=== PATIENT | female | born 1955 | race Caucasian/White ===

== ENCOUNTER 2023-07-30 09:47 | Observation (INO) ==
[2023-07-30] MEDS: NITROGLYCERIN 2% OINTMENT 30GM TUBE EXT STA (10:41)
[2023-07-30] MEDS: ONDANSETRON INJ 2 MG/ML 2 ML VIAL IV STA (10:41)
[2023-07-30] MEDS: FAMOTIDINE 20MG IV PUSH 20 MG/5 ML SYR IV STA (10:45)
[2023-07-30 10:50] LABS: Basophils # (auto) 0.02 K/uL (0.00-0.20); Basophils % (auto) 0.2 %; Eosinophils # (auto) 0.08 K/uL (0.00-0.50); Eosinophils % (auto) 0.7 %; Hematocrit (blood only) 33.3 % (37.0-47.0); Hemoglobin 11.5 g/dl (12.0-16.0); Immature Granulocytes # (auto) 0.03 K/uL (0.01-0.20); Immature Granulocytes % (auto) 0.3 %; Lymphocytes # (auto) 1.06 K/uL (1.20-3.40); Lymphocytes % (auto) 9.7 %; Mean Corpuscular Hemoglobin 32.5 pg (25.0-34.0); Mean Corpuscular Hgb Conc 34.5 g/dL (32.0-36.0); Mean Corpuscular Volume 94.1 fL (80.0-100.0); Mean Platelet Volume 10.8 fL (9.4-12.4); Monocytes # (auto) 1.16 K/uL (0.11-0.59); Monocytes % (auto) 10.6 %; Neutrophils % (auto) 78.5 %; Platelet Count 188 K/uL (130-400); RDW Standard Deviation 41.9 fL (36.4-46.3); Red Blood Count 3.54 M/uL (4.20-5.40); White Blood Count 10.95 K/ul (4.8-10.8)
--- NOTE | 2023-07-30 10:50 | Emergency Department Note ---
Impression & Plan Precordial chest pain, Epigastric abdominal pain, History of coronary artery disease, Hypokalemia, Hypomagnesemia ED Provider Note NAME: ISIDRO TONEY AGE: 68 SEX: F : 1955 ARRIVES VIA: Walk-In INFORMANT: [Patient][daughter] ED PROVIDER(S): [Roderick Sparrow MD] CHIEF COMPLAINT: Chest pain HISTORY OF PRESENT ILLNESS: The patient is a 68-year-old female who presents with around 15 hours of central chest pain that radiates to her neck. She has felt slightly nauseated, there was no shortness of breath, no sweating. The patient states that she thought maybe she had reflux so she took some Tums but it has not helped. The patient does have a history of a 50% LAD lesion, she has never had a heart attack. She does see Dr. Chavez of cardiology. The patient denies any cough or congestion. No respiratory complaints. She states that she has felt similar before when she was in [place], at that time, it turned out not to be her heart. Of note, the patient does feel the pain is slightly worse with a very deep breath. PMHx/PSHx/Social Hx: See Below PHYSICAL EXAM: GENERAL: Patient is in no acute distress. HEENT: No acute trauma, normocephalic atraumatic, mucous membranes moist, no nasal congestion. NECK: No stridor, no adenopathy, no meningismus, trachea is midline. LUNGS: Clear to auscultation bilaterally, no wheeze, no rhonchi, breath sounds equal. HEART: 2/6 systolic murmur heard best at the right sternal border, normal rate, normal rhythm. Chest: Mildly tender over the mid sternal area. ABDOMEN: Soft, tender in the epigastrium and slightly in the right upper quadrant, no peritonitis. EXTREMITIES: No cyanosis, full range of motion of all the joints without pain or difficulty. NEUROLOGIC: Oriented x 3, no acute motor or sensory deficits, no focal weakness. SKIN: No jaundice, no diaphoresis. DIFFERENTIAL DIAGNOSIS: Cardiac ischemia, [place], reflux, pancreatitis, biliary colic, esophagitis, among others. EMERGENCY DEPARTMENT PROCEDURES: MEDICAL DECISION MAKING: There is a very mild leukocytosis, this could be consistent with infection or just the stress of her current situation. A mild anemia was noted. There was a normal platelet count. No coagulopathy. Potassium and sodium were both slightly low, magnesium was slightly low. No worrisome liver enzyme elevation, no renal failure. No evidence for pancreatitis. ECG shows a normal sinus rhythm, no acute ischemic change. Cardiac enzyme testing x 1 was not consistent with acute cardiac injury. Chest x-ray did not show mediastinal widening, pneumonia or pneumothorax. Gallbladder ultrasound was unrevealing. On exam, the patient was somewhat uncomfortable with palpation of the anterior sternal chest wall and the epigastrium. The patient was given nitroglycerin paste, this did not help her pain. She received IV Zofran, IV morphine, IV Pepcid. She was given IV Tylenol, IV potassium and IV magnesium. The patient does feel better status post the morphine administration. At this point, the cause for her complaints is unclear. Cardiac ischemia is a consideration given her known coronary artery disease. Gastritis or ulcer is a possibility. Given the circumstances, I do think further monitoring/workup would be warranted. I spoke with the patient and case management, the on-call hospitalist was consulted. Prior/Outside records/notes reviewed: None ECG per my interpretation: Indication was chest pain. The ECG shows a normal sinus rhythm with an incomplete right bundle branch block. There is some nonspecific ST change. The rate is 81. There is no acute ST elevation, no PVCs. The QTc is 462. Continuous Cardiac Monitoring per my interpretation: An order was placed for continuous cardiac monitoring. The monitor shows a rate of 75 with normal sinus rhythm. Imaging/x-ray results per my interpretation: Chest x-ray does not show mediastinal widening, pneumonia or pneumothorax. Chronic Medical/Social conditions affecting care: History of coronary artery disease Care/Management discussed with: Case management, the on-call hospitalist. Level of care consideration(s): After review of the information above and other included data: --I believe the patient requires escalation of care to admission DISPOSITION: Admission Past Med/Surg History Problem List (Updated 07/30/23 @ 15:44 by Roderick Sparrow MD) Hypomagnesemia (Acute) Hypokalemia (Acute) History of coronary artery disease (Acute) Epigastric abdominal pain (Acute) Precordial chest pain (Acute) Hypokalemia Hypomagnesemia Chest pain Dyslipidemia Essential hypertension CAD (coronary artery disease) Medical History Depression with anxiety Prediabetes Surgical History History of cardiac catheterization Family History Father Heart disease [place] in early 50s, at 55 Mother Heart disease [place] in 60s, at age 78 Brother Gallbladder disease Grandmother Gallbladder disease Social History Smoking Status: Never smoker Hx Alcohol Use: Yes Alcohol Intake Frequency: 4 or More x per/Week Alcohol Intake Frequency Comment: 1 drink/day on average Hx Substance Use: No current occupational status: retired Allergies Allergies Allergy/AdvReac Type Severity Reaction Status Date / Time No Known Allergies Allergy Unverified 07/30/23 12:54 Home Meds Home Medications Medication Instructions Recorded Confirmed ascorbic acid (vitamin C) 500 mg 500 mg PO DAILY 07/30/23 07/30/23 tablet (Vitamin C) aspirin 81 mg chewable tablet 81 mg PO DAILY 07/30/23 07/30/23 atorvastatin 40 mg tablet 40 mg PO QAM 07/30/23 07/30/23 cholecalciferol (vitamin D3) 25 25 mcg PO DAILY 07/30/23 07/30/23 mcg (1,000 unit) capsule citalopram 10 mg tablet 5 mg PO DAILY 07/30/23 07/30/23 labetalol 200 mg tablet 200 mg PO BID 07/30/23 07/30/23 losartan 100 1 tab PO QPM 07/30/23 07/30/23 mg-hydrochlorothiazide 25 mg tablet potassium chloride 10 mEq 10 meq PO DAILY 07/30/23 07/30/23 tablet,extended release(part/cryst) Results & Data (ED) Vital Signs Vital Signs - 24 hr 07/30/23 09:56 07/30/23 10:25 07/30/23 10:25 Temperature 37.3 C Temperature Source Oral Pulse Rate 78 Pulse Rate [Apical] 76 Respiratory Rate 20 21 Respiratory Effort / Characteristics Non-Labored Spontaneous Non-Labored Spontaneous Respiratory Depth Normal Normal Respiratory Pattern Regular Blood Pressure 129/67 Blood Pressure [Right Arm] 160/90 H Blood Pressure Mean 87 Blood Pressure Mean [Right Arm] 113 Blood Pressure Position [Right Arm] Semi-fowlers Pulse Oximetry 97 96 Oxygen Delivery Method Room Air Room Air Room Air Oxygen Flow Rate 96 Sepsis Recent Fever Within 48 Hours No Sepsis New/Unexplained Change in Mental Status N/A Sepsis Action Taken by Nursing No Action Required 07/30/23 10:26 07/30/23 11:20 07/30/23 11:53 Temperature Temperature Source Pulse Rate 75 72 Pulse Rate [Apical] 74 Respiratory Rate 18 13 Respiratory Effort / Characteristics Non-Labored Spontaneous Respiratory Depth Normal Respiratory Pattern Blood Pressure Blood Pressure [Right Arm] 154/86 H Blood Pressure Mean Blood Pressure Mean [Right Arm] 108 Blood Pressure Position [Right Arm] Pulse Oximetry 95 93 Oxygen Delivery Method Room Air Room Air Oxygen Flow Rate Sepsis Recent Fever Within 48 Hours Sepsis New/Unexplained Change in Mental Status Sepsis Action Taken by Nursing 07/30/23 12:56 07/30/23 14:00 07/30/23 14:53 Temperature Temperature Source Pulse Rate Pulse Rate [Apical] 72 68 67 Respiratory Rate 16 19 16 Respiratory Effort / Characteristics Non-Labored Spontaneous Non-Labored Spontaneous Non-Labored Spontaneous Respiratory Depth Normal Normal Normal Respiratory Pattern Regular Regular Regular Blood Pressure Blood Pressure [Right Arm] 101/57 L 103/66 111/65 Blood Pressure Mean Blood Pressure Mean [Right Arm] 71 78 80 Blood Pressure Position [Right Arm] Pulse Oximetry 93 97 93 Oxygen Delivery Method Room Air Room Air Room Air Oxygen Flow Rate Sepsis Recent Fever Within 48 Hours Sepsis New/Unexplained Change in Mental Status Sepsis Action Taken by [facility] Medications Current Medication List: was personally reviewed by me Laboratory Data Attestation: I reviewed the patient's lab results. 07/30/23 10:18 07/30/23 10:18 Lab Results 07/30/23 07/30/23 Range/Units 10:18 14:22 WBC 10.95 H (4.8-10.8) K/ul RBC 3.54 L (4.20-5.40) M/uL Hgb 11.5 L (12.0-16.0) g/dl Hct 33.3 L (37.0-47.0) % MCV 94.1 (80.0-100.0) fL MCH 32.5 (25.0-34.0) pg MCHC 34.5 (32.0-36.0) g/dL RDW Std Deviation 41.9 (36.4-46.3) fL RDW Coeff of Rajesh 12.0 (11.5-14.5) % Plt Count 188 (130-400) K/uL MPV 10.8 (9.4-12.4) fL Immature Gran % (Auto) 0.3 % Neut % (Auto) 78.5 % Lymph % (Auto) 9.7 % [facility] [place] % (Auto) 10.6 % Eos % (Auto) 0.7 % Baso % (Auto) 0.2 % Neut # (Auto) 8.60 H (1.40-6.50) K/uL Lymph # (Auto) 1.06 L (1.20-3.40) K/uL [facility] [facility] # (Auto) 1.16 H (0.11-0.59) K/uL Eos # (Auto) 0.08 (0.00-0.50) K/uL Baso # (Auto) 0.02 (0.00-0.20) K/uL Immature Gran # (Auto) 0.03 (0.01-0.20) K/uL PT 11.0 (9.0-12.0) Seconds INR 1.0 (0.9-1.1) APTT 25 (21-31) Seconds PTT Ratio 0.9 D-Dimer 630 H* (0-500) ug/L FEU Sodium 135 L (136-145) mmol/L Potassium 3.3 L (3.5-5.1) mmol/L Chloride 98 (98-107) mmol/L Carbon Dioxide 29 (21-32) mmol/L Anion Gap 8 (3-11) BUN 11 (6-23) mg/dl Creatinine 0.70 (0.6-1.2) mg/dl Est Cr Clr Drug Dosing 71.2 ml/min Est GFR ( Amer) 102.5 ml/min Est GFR (Non-Af Amer) 88.4 ml/min BUN/Creatinine Ratio 15.7 (10-20) Glucose 130 H (70-99(Fasting)) mg/dl Calcium 9.8 (8.6-10.3) mg/dl Magnesium 1.5 L (1.7-2.4) mg/dl Total Bilirubin 1.6 H (0.2-1.0) mg/dl AST 19 (13-39) U/L ALT 19 (7-52) U/L Alkaline Phosphatase 46 (34-104) U/L Troponin I High Sens 4.3 4.0 (0-14) pg/ml Total Protein 6.7 (6.0-8.3) gm/dl Albumin 4.5 (3.4-5.0) gm/dl Globulin 2.2 L (2.5-4.0) gm/dl Albumin/Globulin Ratio 2.0 (0.9-2) Lipase 14 (11-82) U/L Administered Medications Magnesium Sulfate/Dextrose (Magnesium Sulfate / D5w) 1 gm in 100 mls @ 50 mls/hr IV ONE ONE Stop: 07/30/23 15:54 Last Admin: 07/30/23 14:11 Dose: 50 mls/hr Documented By: KARRIE Discontinued Medications Al Hydrox/Mg Hydrox/Simethicone (Aluminum/Magnesium Susp 30 Ml Udc) 30 ml PO NOW STA Stop: 07/30/23 13:42 Last Admin: 07/30/23 14:13 Dose: 30 ml Documented By: KARRIE Famotidine (Pepcid 20mg Iv Push) 20 mg in 5 mls @ 2.5 mls/min IV NOW STA Stop: 07/30/23 10:30 Last Admin: 07/30/23 10:45 Dose: 2.5 mls/min Documented By: KARRIE Magnesium Sulfate/Dextrose (Magnesium Sulfate / D5w) 1 gm in 100 mls @ 100 mls/hr IV NOW STA Stop: 07/30/23 12:13 Last Infusion: 07/30/23 13:01 Dose: Infused Documented By: Admin: 07/30/23 11:47 Dose: 100 mls/hr Documented By: KARRIE Potassium Chloride (K Michael / Wtr) 10 meq in 100 mls @ 100 mls/hr IV ONE ONE Stop: 07/30/23 12:13 Last Infusion: 07/30/23 13:02 Dose: Infused Documented By: Admin: 07/30/23 11:50 Dose: 100 mls/hr Documented By: KARRIE Acetaminophen (Ofirmev) 1,000 mg in 100 mls @ 400 mls/hr IV NOW STA Stop: 07/30/23 11:29 Last Infusion: 07/30/23 13:01 Dose: Infused Documented By: Admin: 07/30/23 11:25 Dose: 400 mls/hr Documented By: GHANSHYAM Morphine Sulfate (Morphine Sulfate 4 Mg/Ml 1 Ml Carp\Vial) 4 mg IV NOW STA Stop: 07/30/23 11:16 Last Admin: 07/30/23 11:22 Dose: 4 mg Documented By: GHANSHYAM Nitroglycerin (Nitroglycerin 2% Ointment 30gm Tube) 1 inch EXT NOW STA Stop: 07/30/23 10:30 Last Admin: 07/30/23 10:41 Dose: 1 inch Documented By: KARRIE Ondansetron HCl (Ondansetron Inj 2 Mg/Ml 2 Ml Vial) 4 mg IV NOW STA Stop: 07/30/23 10:30 Last Admin: 07/30/23 10:41 Dose: 4 mg Documented By: KARRIE Potassium Chloride (Potassium Chloride Crtab 20 Meq Tabcr) 40 meq PO NOW STA Stop: 07/30/23 13:56 Last Admin: 07/30/23 14:13 Dose: 40 meq Documented By: KARRIE Imaging Data Radiologist's Impression: Chest X-Ray 07/30/23 10:18 XR chest 1V portable CLINICAL HISTORY: Chest pain, nonspecific COMPARISON STUDY: No previous studies for comparison. FINDINGS: Lung volumes are normal. There is no consolidation. Minimal bibasilar densities favor atelectasis. There is no pneumothorax or pleural effusion. Cardiac size is at the upper limits of normal. Mediastinal contours are normal. There is no evidence for pulmonary edema. IMPRESSION: No acute cardiopulmonary findings. ACT 112: Negative or not required by law. Electronically signed by: Dayron Keller M.D. 07/30/2023 10:50 AM Gallbladder Ultrasound 07/30/23 11:21 US gallbladder CLINICAL HISTORY: Epigastric pain. COMPARISON STUDY: No previous studies for comparison. FINDINGS: Hepatic echogenicity is mildly increased. There are no hepatic lesions. There is no biliary ductal dilatation. Gallbladder is normal. There are no gallstones. There is no gallbladder wall thickening. The pancreatic body is normal. Head and tail are obscured by overlying bowel gas. There is no right hydronephrosis. An 8 mm right renal cyst is incidentally noted. IMPRESSION: 1. No gallstones or biliary ductal ductal dilatation. 2. Possible mild hepatic steatosis. ACT 112: Negative or not required by law. Electronically signed by: Dayron Keller M.D. 07/30/2023 12:22 PM Discharge Plan Visit Data Chief Complaint: Chest Pain Stated Complaint: CHEST PAINS ED Provider: Roderick Sparrow Discharge Problem: Precordial chest pain, Epigastric abdominal pain, History of coronary artery disease, Hypokalemia, Hypomagnesemia Patient Disposition: Admitted As Inpatient Condition: Fair Forms Stand Alone Forms: My [facility] [place] [employer] Prescriptions Prescriptions: No Action atorvastatin 40 mg tablet 40 mg PO QAM labetalol 200 mg tablet 200 mg PO BID citalopram 10 mg tablet 5 mg PO DAILY losartan-hydrochlorothiazide 100-25 mg tablet 1 tab PO QPM Rx Instructions: ~2 pm potassium chloride 10 mEq tablet,ER particles/crystals 10 meq PO DAILY ascorbic acid (vitamin C) [Vitamin C] 500 mg Tablet 500 mg PO DAILY aspirin 81 mg Tablet,Chewable 81 mg PO DAILY cholecalciferol (vitamin D3) 25 mcg (1,000 unit) Capsule 25 mcg PO DAILY Referrals Referrals: NO, PCP [Other]
[2023-07-30 11:09] LABS: Albumin Level 4.5 gm/dl (3.4-5.0); BUN Creatinine Ratio 15.7 (10-20); Bilirubin,Total 1.6 mg/dl (0.2-1.0); Calcium 9.8 mg/dl (8.6-10.3); Creatinine Clr Calc Pharmacy 71.2 ml/min; Est GFR (African American) 102.5 ml/min; Est GFR (Non-African American) 88.4 ml/min; Globulin 2.2 gm/dl (2.5-4.0); Magnesium 1.5 mg/dl (1.7-2.4); Potassium 3.3 mmol/L (3.5-5.1); Total Protein 6.7 gm/dl (6.0-8.3)
[2023-07-30 11:15] LABS: Troponin I High Sensitivity 4.3 pg/ml (0-14)
[2023-07-30 11:20] LABS: Partial Thromboplastin Ratio 0.9; Partial Thromboplastin Time 25 Seconds (21-31)
[2023-07-30] MEDS: MoRPHine SULFATE 4 MG/ML 1 ML CARP\\VIAL IV STA (11:22)
[2023-07-30] MEDS: ACETAMINOPHEN 1,000 MG/100 ML VIAL IV STA (11:25)
[2023-07-30] MEDS: MAGNESIUM SULFATE / D5W 1 GM/100 ML BAG IV STA (11:47)
[2023-07-30] MEDS: POTASSIUM CHLORIDE / WTR 10 MEQ/100 ML PLCT IV ONE (11:50)
--- NOTE | 2023-07-30 12:23 | Ultrasound Report ---
US gallbladder CLINICAL HISTORY: Epigastric pain. COMPARISON STUDY: No previous studies for comparison. FINDINGS: Hepatic echogenicity is mildly increased. There are no hepatic lesions. There is no biliary ductal dilatation. Gallbladder is normal. There are no gallstones. There is no gallbladder wall thic kening. The pancreatic body is normal. Head and tail are obscured by overlying bowel gas. There is no right hydronephrosis. An 8 mm right renal cyst is incidentally noted. IMPRESSION: 1. No gallstones or biliary ductal ductal dilatation. 2. Possible mild hepatic steatosis. ACT 112: Negative or not required by law. Electronically signed by: Dayron Keller M.D. 07/30/2023 12:22 PM
--- NOTE | 2023-07-30 12:56 | History & Physical Report ---
Date of Service July 30, 2023 Assessment & Plan (1) Chest pain: Plan: This is a 68 y/o female with history of CAD, HTN, dyslipidemia, prediabetes, and depression w/ anxiety who presented to the ED today with substernal chest pain since last evening. The pain initially radiated to bilateral jaw but is now localized only to chest. The severity is less than when the pain started but it is still present - no significant response to Tums, aspirin, famotidine, nitro. Mild improvement with morphine but this seemed to cause some mild nausea. Pt has known non-obstructive CAD based on cath last year, which is being medically managed. She did have a recent long car ride but denies calf pain or swelling. Unclear etiology for pain at this time but due to her medical history and a family history of CAD/NV, pt was referred for admission for further w/u. - Observe in PCU overnight - Trend troponin - Check ECHO - Cardiology consult - will make pt NPO after midnight in case additional testing needed tomorrow - Continue optimal medical management for known CAD - Check D-dimer - if elevated, consider CTA chest to r/o PE, though seems less likely - Empiric PPI therapy - may need to consider GI evaluation if cardiac evaluation is negative - Trial of GI cocktail in the ED (2) CAD (coronary artery disease): Plan: Chronic Continue medical management with aspirin, statin, and beta-tosin See plan for #1 (3) Essential hypertension: Plan: Chronic, stable Continue labetalol, losartan-HCTZ (4) Dyslipidemia: Plan: Lipid panel in the AM Continue statin - recent change to atorvastatin as outpatient (5) Hypomagnesemia: Plan: IV repletion started in the ED - will give an additional 1 g Mag Sulfate IV and recheck in the AM (6) Hypokalemia: Plan: Given 10 mEq in the ED - will give an additional 40 mEq orally now and recheck in the AM Plan Pt seen and reviewed with collaborating physician, Dr. Walker. Plan of care discussed and as outlined above. Code status: Full code DVT Prophylaxis: Lovenox Antoni Mccurdy PA-C Addendum 4:03 pm - D-Dimer 630. Reviewed with Dr. Walker. Adjusted for age, VTE is considered unlikely. Will defer CTA chest for PE for now - if clinical condition worsening, new hypoxia or tachycardia, then can re-evaluate. Antoni Mccurdy PA-C History of Present Illness Chief Complaint: Chest pain Primary Care Provider: Tristin Guillaume MD This is a 68 y/o female with history of CAD, HTN, dyslipidemia, prediabetes, and depression w/ anxiety who presented to the ED today with substernal chest pain. Pt describes the sudden onset of substernal chest pain last evening around 6 pm when she was at a birthday republican. This pain gradually worsened so they left the republican early, and she went home and took Tums and an aspirin without relief. The pain kept her from sleeping well last night and is still present this morning, although less severe than yesterday. The pain initially radiated to her bilat eral jaw but this has improved today. She describes the pain as "I feel like my esophagus is inflamed" with constant, dull pain in the entire substernal area. She denies associated chest tightness, SOB, RM, diaphoresis, lightheadedness, syncope, edema, or calf pain. The only nausea she had was after receiving morphine in the ED. No vomiting. She had similar pain a few years ago for which she was admitted in [place] and had an extensive w/u that was negative - the pain resolved without intervention. Pt reports an abnormal stress test in 2022 for which she underwent cardiac cath on 05/19/22 - mid LAD lesion is 50% stenosed, small first diagonal branch, ostial 50-60% stenosis. Recommended maximal medical management. Pt notes a recent long car ride of 9 hours three days ago - denies prior hx of DVT/PE, no calf pain or swelling. She does not take NSAIDs regularly but uses sporadically for ALEMAN. She is prediabetic - last A1c 05/01/23 = 6.0. Allergies Allergy/AdvReac Type Severity Reaction Status Date / Time No Known Allergies Allergy Unverified 07/30/23 12:54 Home Medications Medication Instructions Recorded Confirmed Type ascorbic acid (vitamin C) 500 mg 500 mg PO DAILY 07/30/23 07/30/23 History tablet (Vitamin C) aspirin 81 mg chewable tablet 81 mg PO DAILY 07/30/23 07/30/23 History atorvastatin 40 mg tablet 40 mg PO QAM 07/30/23 07/30/23 History cholecalciferol (vitamin D3) 25 25 mcg PO DAILY 07/30/23 07/30/23 History mcg (1,000 unit) capsule citalopram 10 mg tablet 5 mg PO DAILY 07/30/23 07/30/23 History labetalol 200 mg tablet 200 mg PO BID 07/30/23 07/30/23 History losartan 100 1 tab PO QPM 07/30/23 07/30/23 History mg-hydrochlorothiazide 25 mg tablet potassium chloride 10 mEq 10 meq PO DAILY 07/30/23 07/30/23 History tablet,extended release(part/cryst) Past Med/Surg History Problem List (Updated 07/30/23 @ 15:44 by Roderick Sparrow MD) Hypomagnesemia (Acute) Hypokalemia (Acute) History of coronary artery disease (Acute) Epigastric abdominal pain (Acute) Precordial chest pain (Acute) Hypokalemia Hypomagnesemia Chest pain Dyslipidemia Essential hypertension CAD (coronary artery disease) Medical History Depression with anxiety Prediabetes Surgical History History of cardiac catheterization Family History Father Heart disease [place] in early 50s, at 55 Mother Heart disease [place] in 60s, at age 78 Brother Gallbladder disease Grandmother Gallbladder disease Social History Smoking Status: Never smoker Hx Alcohol Use: Yes Alcohol Intake Frequency: 4 or More x per/Week Alcohol Intake Frequency Comment: 1 drink/day on average Hx Substance Use: No current occupational status: retired Review of Systems Review of Systems: All systems reviewed & are unremarkable except as noted in HPI & below Constitutional: no fever, no chills and no sweats Eyes: no diplopia Ear, Nose, Mouth, Throat: no nasal congestion and no sore throat Respiratory: + pain on inspiration; no cough and no d yspnea Cardiovascular: + chest pain; no lightheadedness, no syn cope, no edema and no calf pain Gastrointestinal: as per Subjective / HPI; no vomiting and no change in bowel habits Genitourinary: no dysuria and no hematuria Integumentary: no rash and no yellowing of the skin Neurologic: no tremor(s), no seizure-like activity and no confusion Physical Exam Physical Exam: General: awake, alert, NAD HEENT: no scleral icterus, moist oral mucosa Neck: supple, trachea midline Heart: RRR, no M/G/R Lungs: fine bibasilar crackles but otherwise clear to auscultation Abdomen: soft, NT, +BS Extremities: no pedal edema, no calf tenderness Skin: warm, dry, no jaundice Neurologic: Ox3, moving all extremities, no focal deficits, no confusion or dysarthria Results & Data Results & Data Vital Signs (Past 12 Hours) Vital Signs Temp Pulse Pulse Resp BP BP Pulse Ox 07/30/23 11:53 72 13 93 07/30/23 11:20 74 18 154/86 H 95 07/30/23 10:26 75 07/30/23 10:25 76 21 160/90 H 96 07/30/23 10:25 07/30/23 09:56 37.3 C 78 20 129/67 97 O2 Del Method O2 Flow Rate 07/30/23 11:53 Room Air 07/30/23 11:20 Room Air 07/30/23 10:26 07/30/23 10:25 Room Air 07/30/23 10:25 Room Air 96 07/30/23 09:56 Room Air Laboratory Results Lab Results 07/30/23 Range/Units 10:18 WBC 10.95 H (4.8-10.8) K/ul RBC 3.54 L (4.20-5.40) M/uL Hgb 11.5 L (12.0-16.0) g/dl Hct 33.3 L (37.0-47.0) % MCV 94.1 (80.0-100.0) fL MCH 32.5 (25.0-34.0) pg MCHC 34.5 (32.0-36.0) g/dL RDW Std Deviation 41.9 (36.4-46.3) fL RDW Coeff of Rajesh 12.0 (11.5-14.5) % Plt Count 188 (130-400) K/uL MPV 10.8 (9.4-12.4) fL Immature Gran % (Auto) 0.3 % Neut % (Auto) 78.5 % Lymph % (Auto) 9.7 % [place] % (Auto) 10.6 % Eos % (Auto) 0.7 % Baso % (Auto) 0.2 % Neut # (Auto) 8.60 H (1.40-6.50) K/uL Lymph # (Auto) 1.06 L (1.20-3.40) K/uL [place] # (Auto) 1.16 H (0.11-0.59) K/uL Eos # (Auto) 0.08 (0.00-0.50) K/uL Baso # (Auto) 0.02 (0.00-0.20) K/uL Immature Gran # (Auto) 0.03 (0.01-0.20) K/uL PT 11.0 (9.0-12.0) Seconds INR 1.0 (0.9-1.1) APTT 25 (21-31) Seconds PTT Ratio 0.9 Sodium 135 L (136-145) mmol/L Potassium 3.3 L (3.5-5.1) mmol/L Chloride 98 (98-107) mmol/L Carbon Dioxide 29 (21-32) mmol/L Anion Gap 8 (3-11) BUN 11 (6-23) mg/dl Creatinine 0.70 (0.6-1.2) mg/dl Est Cr Clr Drug Dosing 71.2 ml/min Est GFR ( Amer) 102.5 ml/min Est GFR (Non-Af Amer) 88.4 ml/min BUN/Creatinine Ratio 15.7 (10-20) Glucose 130 H (70-99(Fasting)) mg/dl Calcium 9.8 (8.6-10.3) mg/dl Magnesium 1.5 L (1.7-2.4) mg/dl Total Bilirubin 1.6 H (0.2-1.0) mg/dl AST 19 (13-39) U/L ALT 19 (7-52) U/L Alkaline Phosphatase 46 (34-104) U/L Troponin I High Sens 4.3 (0-14) pg/ml Total Protein 6.7 (6.0-8.3) gm/dl Albumin 4.5 (3.4-5.0) gm/dl Globulin 2.2 L (2.5-4.0) gm/dl Albumin/Globulin Ratio 2.0 (0.9-2) Lipase 14 (11-82) U/L Diagnostic Findings Chest X-Ray 07/30/23 10:18 XR chest 1V portable CLINICAL HISTORY: Chest pain, nonspecific COMPARISON STUDY: No previous studies for comparison. FINDINGS: Lung volumes are normal. There is no consolidation. Minimal bibasilar densities favor atelectasis. There is no pneumothorax or pleural effusion. Cardiac size is at the upper limits of normal. Mediastinal contours are normal. There is no evidence for pulmonary edema. IMPRESSION: No acute cardiopulmonary findings. ACT 112: Negative or not required by law. Electronically signed by: Dayron Keller M.D. 07/30/2023 10:50 AM Gallbladder Ultrasound 07/30/23 11:21 US gallbladder CLINICAL HISTORY: Epigastric pain. COMPARISON STUDY: No previous studies for comparison. FINDINGS: Hepatic echogenicity is mildly increased. There are no hepatic lesions. There is no biliary ductal dilatation. Gallbladder is normal. There are no gallstones. There is no gallbladder wall thickening. The pancreatic body is normal. Head and tail are obscured by overlying bowel gas. There is no right hydronephrosis. An 8 mm right renal cyst is incidentally noted. IMPRESSION: 1. No gallstones or biliary ductal ductal dilatation. 2. Possible mild hepatic steatosis. ACT 112: Negative or not required by law. Electronically signed by: Dayron Keller M.D. 07/30/2023 12:22 PM Medications Administered Discontinued Medications Famotidine (Pepcid 20mg Iv Push) 20 mg in 5 mls @ 2.5 mls/min IV NOW STA Stop: 07/30/23 10:30 Last Admin: 07/30/23 10:45 Dose: 2.5 mls/min Documented By: KARRIE Magnesium Sulfate/Dextrose (Magnesium Sulfate / D5w) 1 gm in 100 mls @ 100 mls/hr IV NOW STA Stop: 07/30/23 12:13 Last Admin: 07/30/23 11:47 Dose: 100 mls/hr Documented By: KARRIE Potassium Chloride (K Michael / Wtr) 10 meq in 100 mls @ 100 mls/hr IV ONE ONE Stop: 07/30/23 12:13 Last Admin: 07/30/23 11:50 Dose: 100 mls/hr Documented By: KARRIE Acetaminophen (Ofirmev) 1,000 mg in 100 mls @ 400 mls/hr IV NOW STA Stop: 07/30/23 11:29 Last Admin: 07/30/23 11:25 Dose: 400 mls/hr Documented By: GHANSHYAM Morphine Sulfate (Morphine Sulfate 4 Mg/Ml 1 Ml Carp\\Vial) 4 mg IV NOW STA Stop: 07/30/23 11:16 Last Admin: 07/30/23 11:22 Dose: 4 mg Documented By: GHANSHYAM Nitroglycerin (Nitroglycerin 2% Ointment 30gm Tube) 1 inch EXT NOW STA Stop: 07/30/23 10:30 Last Admin: 07/30/23 10:41 Dose: 1 inch Documented By: KARRIE Ondansetron HCl (Ondansetron Inj 2 Mg/Ml 2 Ml Vial) 4 mg IV NOW STA Stop: 07/30/23 10:30 Last Admin: 07/30/23 10:41 Dose: 4 mg Documented By: KARRIE Supervising Physician Co-Signing Physician Notes Patient was seen and examined independently at bedside. Chart reviewed. Case discussed with Katey WALKER and agree with the documentation above. In summary, this is a 68 year old female with h/o non obstructive CAD who presented to the ED with central chest pain since 6 pm yesterday. States she was in a birthday republican yesterday and had hamburger without bun, mushroom with lots of garlic and lemon cello at the republican around 4 pm. She had the constant burning pain all night which did not seem to be improving and came to the ED for further evaluation. She was given multiple meds in the ED including pepcid, nitropaste, ASA, which did not seem to help except for morphine. Her pain is 3/10 from 8/10 yesterday during my encounter. Denies any dyspnea, RM or exertional CP. VS, labs, imaging reviewed. D dimer at 630 but within the age adjusted cut off limit of 690 and low concern clinically as no dyspnea, tachycardia, hypoxia or risk factors. Concern for GI etiology however given her cardiac history, will need to rule out cardiac etiology. Will give a trial of maalox and PPI. Will trend trop, monitor on tele, consult cardio, echo. Replete electroltyes. Further cardiac work up per cardio. On exam- General: Lying comfortably in bed, not in distress, on room air HEENT: EOMI, JASMEET, MMM Chest: Clear breath sounds bilaterally, no wheezes or crackles. No tenderness. CVS: Regular rate and rhythm, normal heart sounds, no murmur Abdomen: Soft, non tender, not distended, normal bowel sounds Neuro: Awake, alert, oriented, conversing well, non focal Extremities: No cyanosis, clubbing or edema (1) Chest pain Chest pain type: unspecified Qualified Code(s): R07.9 - Chest pain, unspecified (2) CAD (coronary artery disease) Associated angina: unspecified whether angina present Coronary Disease- Associated Artery/Lesion type: [place] artery [place] vs. transplanted heart: [place] heart Qualified Code(s): I25.10 - Atherosclerotic heart disease of [place] coronary artery without angina pectoris
--- NOTE | 2023-07-30 14:03 | Cardiology Consultation ---
Date of Consultation July 30, 2023 Assessment & Plan (1) CAD (coronary artery disease): (2) Chest pain: (3) Essential hypertension: (4) Dyslipidemia: Plan Impression: 68 year old female with history of nonobstructive CAD presents with chest pain. EKG without acute ischemic changes. HS trop negative x1; repeat pending Echo pending Gallbladder US: 1. No gallstones or biliary ductal ductal dilatation. 2. Possible mild hepatic steatosis. Plan: Chest pain: Differential include obstructive CAD/angina vs GERD vs pleurisy Cardiac workup reassuring thus far. Await echo to assess LVEF/WM/Structural heart. Can consider stress testing pending clinic course. Trend HS troponin. D-Dimer pending. Continue ASA 81 mg daily and statin. Questionable GERD component- Symptomatic improvement with Maalox and Pepcid. Start pantoprazole. Hypertension: Elevated on presentation, now controlled. Restart home BP meds as able. Patient normally maintained on Labetalol 200 mg twice daily and Losartanhydrochlorothiazide 100-25 mg daily Case discussed with Dr. Chavez. Further recommendations pending assessment. I spent a total of 40 minutes on the date of service in preparation, delivery, and documentation of the care provided to the patient excluding any time spent in the performance of separately billed services. CATHERINE Jolly Department of Cardiology, [facility] This chart was completed in part utilizing Speech Voice Recognition Software. Grammatical errors, random word insertions, pronoun errors, and incomplete sentences are an occasional consequence of this system due to software limitations, ambient noise, and hardware issues. Any formal questions or concerns about the content, text, or information contained within the body of this dictation should be directly addressed to the provider for clarification. Supervising Physician Co-Signing Physician Notes Attending attestation: Case reviewed with the advanced practitioner. I have personally performed a history and physical examination on the patient. I have reviewed the advanced practitioner's documentation on the date of service referenced in note, and I agree with, and take responsibility for the plan of care. Echo normal resting wall motion, normal LVEF. EKG without acute change. Trend troponin levels. Proceed with trial of Protonix. CTA chest for further assessment given elevated D-dimer. Study ordered. I spent a total of 20 minutes coordinating, documenting, and providing care for this patient excluding time spent in the performance of separately billed services or time spent by another provider. Baldomero Chavez, History of Present Illness Reason for Consultation: Chest pain Requesting Physician: [place] History of Present Illness 68-year-old female with past medical history of nonobstructive coronary disease presented to [facility] emergency department today due to chest discomfort. Symptoms started yesterday afternoon while at her grandson's birthday green party. Notes that she ate a hamburger without a bun and mushrooms with a lot of garlic and shortly after developed a chest pain and pressure that originated in her epi gastric area and extended into her stomach and up into her neck. Pain worsened with position changes, but once she was laid down she felt better. Also notes pain worsens with deep breathing. No shortness of breath or nausea. She took Tums at home without relief. Pain has been constant over the last 24 hours, waxed and waned. Decided to come in today when symptoms would not "let up". EKG showed sinus rhythm with an incomplete right bundle branch block and nonspecific ST wave abnormality; QTC 462 ms Lab work revealed a mildly low sodium of 135, hypokalemia of 3.3 (supplemented), low mag at 1.5 (supplemented). High-sensitivity troponin negative x 1. Repeat pending. Echo pending. Upon entrance into the room patient resting in bed. at bedside. Feeling much improved after taking Maalox. Chest previously described as a 7-10/10, now rated at a 3/10. Denies shortness of breath, palpitations, dizziness, syncope or near syncope. No orthopnea, PND, or increased lower extremity edema. No fever, chills, cough, hematochezia, melena, or hemoptysis. Known history of nonobstructive CAD per cath 05/2022. No history of congestive heart failure, valvular disease or rheumatic fever, or history of arrhythmia. Nonsmoker. Daily alcohol use (1 glass of wine or beer daily- did drink 1 glass of lemoncello yesterday). No illicit drug use. Outpatient cardiac medications include: Aspirin 81 mg daily Atorvastatin 40 mg daily Labetalol 200 mg twice daily Losartanhydrochlorothiazide 100-25 mg daily Past medical history: -Coronary artery disease--status post cardiac cath 05/19/2022 ([facility]) revealing mild luminal irregularities of the left main, 50% mid LAD (assessed via IFR and FFR with measurements that were felt to not be hemodynamically significant of 0.9 and 0.84 respectively), diag1 small with 50-60% ostial stenosis, mild luminal irregularities in the left circumflex and RCA, medically managed -Hypertension -Hyperlipidemia Allergies Allergy/AdvReac Type Severity Reaction Status Date / Time No Known Allergies Allergy Unverified 07/30/23 12:54 Home Medications Medication Instructions Recorded Confirmed Type ascorbic acid (vitamin C) 500 mg 500 mg PO DAILY 07/30/23 07/30/23 History tablet (Vitamin C) aspirin 81 mg chewable tablet 81 mg PO DAILY 07/30/23 07/30/23 History atorvastatin 40 mg tablet 40 mg PO QAM 07/30/23 07/30/23 History cholecalciferol (vitamin D3) 25 25 mcg PO DAILY 07/30/23 07/30/23 History mcg (1,000 unit) capsule citalopram 10 mg tablet 5 mg PO DAILY 07/30/23 07/30/23 History labetalol 200 mg tablet 200 mg PO BID 07/30/23 07/30/23 History losartan 100 1 tab PO QPM 07/30/23 07/30/23 History mg-hydrochlorothiazide 25 mg tablet potassium chloride 10 mEq 10 meq PO DAILY 07/30/23 07/30/23 History tablet,extended release(part/cryst) Patient History Medical History Depression with anxiety Prediabetes Surgical History History of cardiac catheterization Family History Father Heart disease [place] in early 50s, at 55 Mother Heart disease [place] in 60s, at age 78 Brother Gallbladder disease Grandmother Gallbladder disease Social History Smoking Status: Never smoker Hx Alcohol Use: Yes Alcohol type: wine Alcohol Intake Frequency: 4 or More x per/Week Alcohol Intake Frequency Comment: 1 drink/day on average Hx Substance Use: No Preferred Language: Malaysian Communication Ability: Effective Oracle Erp Developer Required: No Beliefs That Will Affect Care: None Current Living Situation: Spouse current occupational status: retired Other Information That Helps Us Care for You: No Feels Safe at Home: Yes Assistive Devices: Glasses Review of Systems Review of Systems: All systems reviewed & are unremarkable except as noted in HPI & below Physical Exam Constitutional: WD/WN, vitals as above no acute distress Eyes: PERRL, conjunctivae normal, anicteric sclerae ENMT: external ear and nose normal, oropharynx normal Neck: normal visual inspection and trachea midline Respiratory: normal respiratory effort, lungs clear to auscultation Cardiovascular: RRR, no murmur, no edema Vessels: no JVD Extremities: no edema Gastrointestinal (Abdomen): normal bowel sounds, soft, nontender, no hepatosplenomegaly Skin: no rashes, warm and dry Neurologic: PERRL, EOMI, accommodation nl, no face palsy, no dysarthria Psychiatric: A+Ox3, euthymic affect Results & Data Vital Signs (Past 12 Hours) Vital Signs Temp Pulse Pulse Resp BP BP Pulse Ox 07/30/23 12:56 72 16 101/57 L 93 07/30/23 11:53 72 13 93 07/30/23 11:20 74 18 154/86 H 95 07/30/23 10:26 75 07/30/23 10:25 76 21 160/90 H 96 07/30/23 10:25 07/30/23 09:56 37.3 C 78 20 129/67 97 O2 Del Method O2 Flow Rate 07/30/23 12:56 Room Air 07/30/23 11:53 Room Air 07/30/23 11:20 Room Air 07/30/23 10:26 07/30/23 10:25 Room Air 07/30/23 10:25 Room Air 96 07/30/23 09:56 Room Air Laboratory Results Cardiac Enzymes 07/30/23 Range/Units 10:18 AST 19 (13-39) U/L Troponin I High Sens 4.3 (0-14) pg/ml Coagulation 07/30/23 Range/Units 10:18 PT 11.0 (9.0-12.0) Seconds APTT 25 (21-31) Seconds CBC 07/30/23 Range/Units 10:18 WBC 10.95 H (4.8-10.8) K/ul RBC 3.54 L (4.20-5.40) M/uL Hgb 11.5 L (12.0-16.0) g/dl Hct 33.3 L (37.0-47.0) % Plt Count 188 (130-400) K/uL Neut # (Auto) 8.60 H (1.40-6.50) K/uL Lymph # (Auto) 1.06 L (1.20-3.40) K/uL [place] # (Auto) 1.16 H (0.11-0.59) K/uL Eos # (Auto) 0.08 (0.00-0.50) K/uL Baso # (Auto) 0.02 (0.00-0.20) K/uL Comprehensive Metabolic Panel 07/30/23 Range/Units 10:18 Sodium 135 L (136-145) mmol/L Potassium 3.3 L (3.5-5.1) mmol/L Chloride 98 (98-107) mmol/L Carbon Dioxide 29 (21-32) mmol/L BUN 11 (6-23) mg/dl Creatinine 0.70 (0.6-1.2) mg/dl Glucose 130 H (70-99(Fasting)) mg/dl Calcium 9.8 (8.6-10.3) mg/dl AST 19 (13-39) U/L ALT 19 (7-52) U/L Alkaline Phosphatase 46 (34-104) U/L Total Protein 6.7 (6.0-8.3) gm/dl Albumin 4.5 (3.4-5.0) gm/dl Intake and Output 07/29/23 07/30/23 07/30/23 22:59 06:59 14:59 Intake Total 300 / 300 Balance 300 / 300 Intake: IV 300 / 300 Acetaminophen 1,000 mg In 100 100 / 100 ml @ 400 mls/hr IV NOW STA Rx#: [id number] Magnesium Sulfate / D5w 1 gm In 100 / 100 100 ml @ 100 mls/hr IV NOW STA Rx#:[id number] Potassium Chloride / Wtr 10 meq 100 / 100 In 100 ml @ 100 mls/hr IV ONE ONE Rx#:[id number] Other: Weight 70.1 kg Weight Measurement Method Chair Scale Patient Weight 07/31/23 06:59 Weight 70.1 kg Diagnostic Findings Cardiac cath, [facility] 05/19/2022 Coronary Findings Diagnostic Dominance: Right Left Main: The vessel exhibits minimal luminal irregularities. Left Anterior Descending: Mid LAD lesion is 50% stenosed. Not the culprit lesion. iFR was measured. iFR ratio: 0.9. Pressure wire/FFR was performed on the lesion. FFR: 0.84. First Diagonal Branch: The vessel is small. This is a very small sized vessel, less than 1 mm in diameter, has ostial 50 to 60% the stenosis. Left Circumflex: The vessel exhibits minimal luminal irregularities. Large sized vessel, nondominant, gives off multiple obtuse marginal branches. Right Coronary Artery: The vessel exhibits minimal luminal irregularities. Large size vessel, dominant, gives off the RPDA and PLV branches.
[2023-07-30] MEDS: MAGNESIUM SULFATE / D5W 1 GM/100 ML BAG IV ONE (14:11)
[2023-07-30] MEDS: ALUMINUM/MAGNESIUM SUSP 30 ML UDC PO STA (14:13)
[2023-07-30] MEDS: POTASSIUM CHLORIDE CRTAB 20 MEQ TABCR PO STA (14:13)
[2023-07-30 15:33] LABS: D Dimer 630 ug/L FEU (0-500)
[2023-07-30] MEDS ORDERED: MoRPHine SULFATE 2 MG/ML CARP IV PRN (16:31)
[2023-07-30] MEDS: ACETAMINOPHEN 325 MG TAB PO PRN (16:54)
[2023-07-30] MEDS: PANTOprazole 40 MG TAB PO ONE (16:54)
[2023-07-30] MEDS ORDERED: ACETAMINOPHEN 325 MG TAB PO PRN (18:01)
[2023-07-30] MEDS ORDERED: NITROGLYCERIN SL 0.4 MG/TAB TAB SL PRN (18:01)
[2023-07-30] MEDS: PANTOprazole 40 MG TAB PO SCH (18:35)
--- NOTE | 2023-07-30 18:35 | Electrocardiogram Report ---
Test Reason : Blood Pressure : / mmHG Vent. Rate : 081 BPM Atrial Rate : 081 BPM P-R Int : 160 ms QRS Dur : 096 ms QT Int : 398 ms P-R-T Axes : 044 -13 061 degrees QTc Int : 462 ms Normal sinus rhythm Incomplete right bundle branch block Prolonged QT Abnormal ECG No previous ECGs available Confirmed by Tristin Connor ([id number]) on 07/30/2023 6:35:49 PM Referred By: REFERRED SELF Confirmed By:Tristin Connor
[2023-07-30] MEDS: ALUMINUM/MAGNESIUM/SIMETH (MAALOX MAX) 30 ML UDC PO PRN (19:39)
[2023-07-30] MEDS: LABETALOL HCL 200 MG TAB PO SCH (20:04)
[2023-07-30] MEDS: OPTIRAY 320 125ml IV ONE (20:17)
[2023-07-30] MEDS ORDERED: ATORVASTATIN 40 MG TAB PO SCH (21:00)
--- NOTE | 2023-07-30 23:13 | CT Scan Report ---
Exam(s): CTA CHEST IV Amt: 117 cc opti 320 EXAM: CT Angiography Chest With Intravenous Contrast CLINICAL HISTORY: Reason for exam: PE. TECHNIQUE: Axial computed tomographic angiography images of the chest with intravenous contrast. CTDI is 26.88 mGy and DLP is 794 mGy-cm. Automated exposure control was utilized for the study. A dose lowering technique was utilized adhering to the principles of ALARA. MIP reconstructed images were created and reviewed. COMPARISON: No relevant prior studies available. FINDINGS: Pulmonary arteries: No pulmonary embolism. Aorta: No acute findings. Normal caliber. No dissection. Lungs: No consolidation or interstitial edema. Atelectasis within the lower lobes and lingula. Pleural space: Unremarkable. Heart: Unremarkable. Bones/joints: No acute fracture. Soft tissues: Unremarkable. Lymph nodes: Unremarkable. IMPRESSION: No pulmonary embolism. Electronically signed by: Christopher Martin MD 07/30/23 23:12 PM
[2023-07-31 03:04] LABS: Chol HDL Ratio 2.8 (0-5)
[2023-07-31 03:11] LABS: Troponin I High Sensitivity 8.3 pg/ml (0-14)
--- NOTE | 2023-07-31 07:21 | Cardiology Progress Note ---
Date of Service July 31, 2023 Assessment & Plan (1) CAD (coronary artery disease): (2) Chest pain: (3) Essential hypertension: (4) Dyslipidemia: Plan Impression: 68 year old female with history of nonobstructive CAD presents with chest pain. EKG x2 without acute ischemic changes HS trop negative x4 Echo with preserved LV systolic function and no wall motion abnormalities or significant valvular disease CTA of the chest without evidence of PE Gallbladder US: 1. No gallstones or biliary ductal ductal dilatation. 2. Possible mild hepatic steatosis. Plan: Chest pain: Differential include obstructive CAD/angina vs GERD vs pleurisy Cardiac workup reassuring thus far. Currently NPO. Will plan for exercise stress echo this morning. Continue ASA 81 mg daily and statin. Questionable GERD component- Symptomatic improvement with pantoprazole, Pepcid, and Maalox. Hypertension: Restart home BP meds; Labetalol 200 mg twice daily and Losartanhydrochlorothiazide 100-25 mg daily Case discussed with Dr. Chavez. Further recommendations pending assessment. I spent a total of 30 minutes on the date of service in preparation, delivery, and documentation of the care provided to the patient excluding any time spent in the performance of separately billed services. CATHERINE Jolly Department of Cardiology, [facility] This chart was completed in part utilizing Speech Voice Recognition Software. Grammatical errors, random word insertions, pronoun errors, and incomplete sentences are an occasional consequence of this system due to software limitations, ambient noise, and hardware issues. Any formal questions or concerns about the content, text, or information contained within the body of this dictation should be directly addressed to the provider for clarification. Admission and Anticipated Discharge Date Admission Date: July 30, 2023 Supervising Physician Co-Signing Physician Notes Attending attestation: Case reviewed with the advanced practitioner. I have personally performed a history and physical examination on the patient. I have reviewed the advanced practitioner's documentation on the date of service referenced in note, and I agree with, and take responsibility for the plan of care. CT angiogram of the chest negative for PE. Patient underwent exercise stress echocardiogram completing 6 minutes on a Dylon protocol, moderately high workload achieved. Heart rate response mildly attenuated due to underlying treatment with labetalol. No symptoms suggestive angina were induced. Stress echo is negative for ischemia. -No additional cardiac testing felt to be indicated at this time. Stable for di scharge on prior to hospital treatment with aspirin, atorvastatin, labetalol, losartan/HCTZ, potassium chloride. -Add famotidine, pantoprazole. -Follow-up with PCP, consider referral for EGD as outpatient. I spent a total of 20 minutes coordinating, documenting, and providing care for this patient excluding time spent in the performance of separately billed services or time spent by another provider. Baldomero Chavez, DO Subjective 68 year old female with history of nonobstructive CAD presented initially with chest pain. Known history of nonobstructive coronary disease per prior cardiac cath 05/202207/30/2023: EKG without acute ischemic changes. HS trop negative x4. Echo Revealing a normal LVEF of 60 to 65% without wall motion abnormalities or significant valvular disease. D-dimer was elevated in the 600, CTA of the chest was negative for PE. Questionable GERD component, patient was started on pantoprazole in addition to her Pepcid and Maalox. 07/31/2023: EKG: Normal sinus rhythm, incomplete right bundle branch block, 71 bpm. Telemetry: Sinus rhythm 60s to 70s Upon entrance into the room patient resting comfortably in bed. Currently chest pain-free; symptoms resolved overnight. Believes that the pantoprazole, Pepcid, and Maalox improved her symptoms. She denies any shortness of breath. No palpitations, dizziness, syncope or near syncope. No orthopnea, PND, or increased lower extremity edema. No fever, chills, cough, hematochezia, melena, or hemoptysis. Review of Systems Review of Systems: All systems reviewed & are unremarkable except as noted in HPI & below Physical Exam Constitutional: WD/WN, vitals as above no acute distress Eyes: PERRL, conjunctivae normal, anicteric sclerae ENMT: external ear and nose normal, oropharynx normal Neck: normal visual inspection and trachea midline Respiratory: normal respiratory effort, lungs clear to auscultation Cardiovascular: RRR, no murmur, no edema Vessels: no JVD Extremities: no edema Gastrointestinal (Abdomen): normal bowel sounds, soft, nontender, no hepatosplenomegaly Skin: no rashes, warm and dry Neurologic: PERRL, EOMI, accommodation nl, no face palsy, no dysarthria Psychiatric: A+Ox3, euthymic affect Results & Data Vital Signs (Past 12 Hours) Vital Signs Temp Pulse Pulse Resp BP Pulse Ox O2 Del Method 07/31/23 03:32 36.6 C 71 16 138/80 95 Room Air 07/30/23 22:41 36.6 C 85 18 154/83 H 94 Room Air 07/30/23 21:52 64 07/30/23 20:03 36.7 C 73 18 143/80 H 96 Room Air Laboratory Results Cardiac Enzymes 07/30/23 07/30/23 07/30/23 Range/Units 10:18 14:22 19:54 AST 19 (13-39) U/L Troponin I High Sens 4.3 4.0 4.9 (0-14) pg/ml 07/31/23 Range/Units 02:26 AST (13-39) U/L Troponin I High Sens 8.3 (0-14) pg/ml Coagulation 07/30/23 Range/Units 10:18 PT 11.0 (9.0-12.0) Seconds APTT 25 (21-31) Seconds Lipids 07/31/23 Range/Units 02:26 Triglycerides 134 (0-150) mg/dl Cholesterol 127 (0-200) mg/dl HDL Cholesterol 45 mg/dl Cholesterol/HDL Ratio 2.8 (0-5) CBC 07/30/23 Range/Units 10:18 WBC 10.95 H (4.8-10.8) K/ul RBC 3.54 L (4.20-5.40) M/uL Hgb 11.5 L (12.0-16.0) g/dl Hct 33.3 L (37.0-47.0) % Plt Count 188 (130-400) K/uL Neut # (Auto) 8.60 H (1.40-6.50) K/uL Lymph # (Auto) 1.06 L (1.20-3.40) K/uL [place] # (Auto) 1.16 H (0.11-0.59) K/uL Eos # (Auto) 0.08 (0.00-0.50) K/uL Baso # (Auto) 0.02 (0.00-0.20) K/uL Comprehensive Metabolic Panel 07/30/23 Range/Units 10:18 Sodium 135 L (136-145) mmol/L Potassium 3.3 L (3.5-5.1) mmol/L Chloride 98 (98-107) mmol/L Carbon Dioxide 29 (21-32) mmol/L BUN 11 (6-23) mg/dl Creatinine 0.70 (0.6-1.2) mg/dl Glucose 130 H (70-99(Fasting)) mg/dl Calcium 9.8 (8.6-10.3) mg/dl AST 19 (13-39) U/L ALT 19 (7-52) U/L Alkaline Phosphatase 46 (34-104) U/L Total Protein 6.7 (6.0-8.3) gm/dl Albumin 4.5 (3.4-5.0) gm/dl Intake and Output 07/30/23 07/31/23 07/31/23 22:59 06:59 14:59 Intake Total 400 / 700 Balance 400 / 700 Intake: IV 100 / 400 Magnesium Sulfate / D5w 1 gm In 100 / 100 100 ml @ 50 mls/hr IV ONE ONE Rx#:[id number] Oral 300 / 300 Other: Other Intake Source Patient is NPO # Unmeasured Voids 1 1 Weight 70.1 kg 70.1 kg Weight Measurement Method Chair Scale Built in [facility] (1) CAD (coronary artery disease) Associated angina: unspecified whether angina present Coronary Disease- Associated Artery/Lesion type: [place] artery [place] vs. transplanted heart: [place] heart Qualified Code(s): I25.10 - Atherosclerotic heart disease of [place] coronary artery without angina pectoris (2) Chest pain Chest pain type: unspecified Qualified Code(s): R07.9 - Chest pain, unspecified
[2023-07-31] MEDS: ENOXAPARIN INJ 40 MG/0.4 ML SYR SQ SCH (08:04)
[2023-07-31] MEDS: ATORVASTATIN 40 MG TAB PO SCH (08:04)
[2023-07-31] MEDS: ASPIRIN 81 MG ECTAB PO SCH (08:04)
[2023-07-31] MEDS: POTASSIUM CHLORIDE 10 MEQ TABCR PO SCH (08:05)
[2023-07-31] MEDS: ASCORBIC ACID 500 MG TAB PO SCH (08:05)
[2023-07-31] MEDS: CITALOPRAM 20 MG TAB PO SCH (08:05)
[2023-07-31] MEDS: CHOLECALCIFEROL 25 MCG (1000 UNITS) TAB PO SCH (08:06)
[2023-07-31] MEDS ORDERED: PANTOprazole 40 MG TAB PO SCH (09:00)
--- NOTE | 2023-07-31 10:38 | Electrocardiogram Report ---
Test Reason : Blood Pressure : / mmHG Vent. Rate : 071 BPM Atrial Rate : 071 BPM P-R Int : 150 ms QRS Dur : 096 ms QT Int : 424 ms P-R-T Axes : 049 -14 063 degrees QTc Int : 460 ms Normal sinus rhythm Incomplete right bundle branch block Borderline ECG When compared with ECG of 30-JUL-2023 10:07, No significant change was found Confirmed by Tristin Connor ([id number]) on 07/31/2023 10:37:52 AM Referred By: REFERRED SELF Confirmed By:Tristin Connor
[2023-07-31 11:56] LABS: BUN Creatinine Ratio 13.8 (10-20); Calcium 9.5 mg/dl (8.6-10.3); Creatinine Clr Calc Pharmacy 57.3 ml/min; Est GFR (African American) 78.8 ml/min; Potassium 4.1 mmol/L (3.5-5.1)
--- NOTE | 2023-07-31 12:37 | Hospitalist Progress Note ---
Date of Service July 31, 2023 Assessment & Plan (1) Chest pain: Plan: This is a 68 y/o female with history of CAD, HTN, dyslipidemia, prediabetes, and depression w/ anxiety who presented to the ED today with substernal chest pain since last evening. The pain initially radiated to bilateral jaw but is now localized only to chest. The severity is less than when the pain started but it is still present - no significant response to Tums, aspirin, famotidine, nitro. Mild improvement with morphine but this seemed to cause some mild nausea. Pt has known non-obstructive CAD based on cath last year, which is being medically managed. She did have a recent long car ride but denies calf pain or swelling. Unclear etiology for pain at this time but due to her medical history and a family history of CAD/[place], pt was referred for admission for further w/u. - Observe in PCU overnight - Trend troponin - Check ECHO - Cardiology consult - will make pt NPO after midnight in case additional testing needed tomorrow - Continue optimal medical management for known CAD - Check D-dimer - if elevated, consider CTA chest to r/o PE, - Empiric PPI therapy - may need to consider GI evaluation if cardiac evaluation is negative - Trial of GI cocktail in the ED 07/31/2023 Serial cardiac enzymes and EKG did not show any evidence of ACS She was evaluated by aboriginal community council member and underwent exercise stress echo Stress echo was unremarkable and was negative for any ischemia CTA did not show any pulmonary embolus And stress echo of the heart showed-negative for inducible ischemia, no symptoms suggestive of angina reported, the heart rate response is mildly attenuated due to underlying therapy with beta-tosin tosin labetalol-the target heart rate was achieved. The resting blood pressure was mildly elevated with appropriate blood pressure response to exercise. Her symptoms are seems to be related to peptic ulcer disease and was advised to have an outpatient EGD down the line She was given PPI on discharge She denies any symptoms following the procedure and remains stable to be discharged She will be discharged home this afternoon (2) CAD (coronary artery disease): Plan: Chronic Continue medical management with aspirin, statin, and beta-tosin See plan for #1 (3) Essential hypertension: Plan: Chronic, stable Continue labetalol, losartan-HCTZ (4) Dyslipidemia: Plan: Lipid panel remain unremarkable Continue statin - recent change to atorvastatin as outpatient (5) Hypomagnesemia: Plan: IV repletion started in the ED - will give an additional 1 g Mag Sulfate IV and recheck in the AM (6) Hypokalemia: Plan: Given 10 mEq in the ED - will give an additional 40 mEq orally now and recheck in the AM Hypokalemia was corrected Plan Pt seen and reviewed with collaborating physician, Dr. Walker. Plan of care discussed and as outlined above. Code status: Full code DVT Prophylaxis: Lovenox She will be discharged home this afternoon Admission and Anticipated Discharge Date Admission Date: July 30, 2023 Subjective 07/31/2023 The patient was seen and examined in telemetry unit in presence of the She is status post negative exercise stress echo Denies any more symptoms following the procedure She is stable for discharge as per the aboriginal community council member Review of Systems Review of Systems: All systems reviewed and are unremarkable except as noted below Physical Exam Physical Exam: Lying in bed comfortably Constitutional: well developed, well nourished and average body habitus; not ill appearing Eyes: PERRL, conjunctivae normal, anicteric sclerae ENMT: external ear and nose normal, oropharynx normal Neck: trachea midline, no thyromegaly Respiratory: no respiratory distress Auscultation: lungs clear to auscultation bilaterally Cardiovascular: Rate/Rhythm: regular rate and regular rhythm; not tachycardic Heart Sounds: normal S1 and normal S2; no murmur Extremities: no edema Gastrointestinal (Abdomen): Inspection/Auscultation: normal bowel sounds; abdomen not distended Percussion/Palpation: abdomen soft; abdomen nontender Musculoskeletal: No acute arthritis involving any of the joint Neurologic: normal touch/pain/proprioception and moves all extremities; no focal motor deficits Psychiatric: A+Ox3, euthymic affect Lymphatic: no cervical or axillary lymphadenopathy Results & Data Results & Data Vital Signs (Past 12 Hours) Vital Signs Temp Pulse Pulse Resp BP Pulse Ox O2 Del Method 07/31/23 09:30 71 07/31/23 07:29 37.0 C 67 20 143/78 H 94 Room Air 07/31/23 03:32 36.6 C 71 16 138/80 95 Room Air Laboratory Results [facility] 07/31/23 11:14 Sodium 136 Potassium 4.1 D Chloride 101 Carbon Dioxide 28 BUN 12 Creatinine 0.87 Glucose 136 H Calcium 9.5 Medications Administered Current Inpatient Medications Acetaminophen (Acetaminophen 325 Mg Tab) 650 mg PO Q4H PRN PRN Reason: Mild Pain (Scale 1, 2, 3) Stop: 08/29/23 16:30 Last Admin: 07/30/23 16:54 Dose: 650 mg Al Hydrox/Mg Hydrox/Simethicone (Aluminum/Magnesium/Simeth (Maalox Max) 30 Ml Udc) 15 ml PO Q6H PRN PRN Reason: Indigestion Stop: 08/29/23 16:16 Last Admin: 07/30/23 19:39 Dose: 15 ml Ascorbic Acid (Ascorbic Acid 500 Mg Tab) 500 mg PO DAILY [facility] Stop: 08/30/23 08:59 Last Admin: 07/31/23 08:05 Dose: 500 mg Aspirin (Aspirin 81 Mg Ectab) 81 mg PO DAILY [facility] Stop: 08/30/23 08:59 Last Admin: 07/31/23 08:04 Dose: 81 mg Atorvastatin Calcium (Atorvastatin 40 Mg Tab) 40 mg PO QAM [facility] Stop: 08/30/23 08:59 Last Admin: 07/31/23 08:04 Dose: 40 mg Citalopram Hydrobromide (Citalopram 20 Mg Tab) 5 mg PO DAILY [facility] Stop: 08/30/23 08:59 Last Admin: 07/31/23 08:05 Dose: 5 mg Enoxaparin Sodium (Enoxaparin Inj 40 Mg/0.4 Ml Syr) 40 mg SQ QAM [facility] Stop: 08/30/23 08:59 Last Admin: 07/31/23 08:04 Dose: 40 mg HCTZ/Losartan Potassium (Losartan/Hctz 50/12.5mg Tab) 1 tab PO DAILY@1400 [facility] Stop: 08/30/23 18:14 Labetalol HCl (Labetalol Hcl 200 Mg Tab) 200 mg PO BID [facility] Stop: 08/29/23 20:59 Last Admin: 07/31/23 08:07 Dose: 200 mg Morphine Sulfate (Morphine Sulfate 2 Mg/Ml Carp) 2 mg IV Q4 PRN PRN Reason: Mod-Sev Pain (Scale 4-10) Stop: 08/13/23 16:30 Nitroglycerin (Nitroglycerin Sl 0.4 Mg/Tab Tab) 0.4 mg SL Q5M PRN PRN Reason: Chest Pain Stop: 08/29/23 18:00 Pantoprazole Sodium (Pantoprazole 40 Mg Tab) 40 mg PO QAM [facility] Stop: 08/29/23 18:14 Last Admin: 07/31/23 08:07 Dose: 40 mg Potassium Chloride (Potassium Chloride 10 Meq Tabcr) 10 meq PO DAILY [facility] Stop: 08/30/23 08:59 Last Admin: 07/31/23 08:05 Dose: 10 meq Vitamin D (Cholecalciferol 25 Mcg (1000 Units) Tab) 25 mcg PO DAILY [facility] Stop: 08/30/23 08:59 Last Admin: 07/31/23 08:06 Dose: 25 mcg (1) Chest pain Chest pain type: unspecified Qualified Code(s): R07.9 - Chest pain, unspecified (2) CAD (coronary artery disease) Coronary Disease-Associated Artery/Lesion type: [place] artery [place] vs. transplanted heart: [place] heart Associated angina: unspecified whether angina present Qualified Code(s): I25.10 - Atherosclerotic heart disease of [place] coronary artery without angina pectoris
[2023-07-31] MEDS ORDERED: LOSARTAN/HCTZ 50/12.5MG TAB PO SCH (18:15)
--- NOTE | 2023-07-31 18:58 | Discharge Summary ---
Date of Service July 31, 2023 Admission HPI Per Admitting Provider This is a 68 y/o female with history of CAD, HTN, dyslipidemia, prediabetes, and depression w/ anxiety who presented to the ED today with substernal chest pain. Pt describes the sudden onset of substernal chest pain last evening around 6 pm when she was at a birthday constitution party. This pain gradually worsened so they left the constitution party early, and she went home and took Tums and an aspirin without relief. The pain kept her from sleeping well last night and is still present this morning, although less severe than yesterday. The pain initially radiated to her bilateral jaw but this has improved today. She describes the pain as "I feel like my esophagus is inflamed" with constant, dull pain in the entire substernal area. She denies associated chest tightness, SOB, RM, diaphoresis, lightheadedness, syncope, edema, or calf pain. The only nausea she had was after receiving morphine in the ED. No vomiting. She had similar pain a few years ago for which she was admitted in [place] and had an extensive w/u that was negative - the pain resolved without intervention. Pt reports an abnormal stress test in 2022 for which she underwent cardiac cath on 05/19/22 - mid LAD lesion is 50% stenosed, small first diagonal branch, ostial 50-60% stenosis. Recommended maximal medical management. Pt notes a recent long car ride of 9 hours three days ago - denies prior hx of DVT/PE, no calf pain or swelling. She does not take NSAIDs regularly but uses sporadically for ALEMAN. She is prediabetic - last A1c 05/01/23 = 6.0. Admission Exam Per Admitting Provider Physical Exam: General: awake, alert, NAD HEENT: no scleral icterus, moist oral mucosa Neck: supple, trachea midline Heart: RRR, no M/G/R Lungs: fine bibasilar crackles but otherwise clear to auscultation Abdomen: soft, NT, +BS Extremities: no pedal edema, no calf tenderness Skin: warm, dry, no jaundice Neurologic: Ox3, moving all extremities, no focal deficits, no confusion or dysarthria Principal Diagnosis Chest pain, negative exercise stress echo, peptic ulcer disease Discharge Exam Lying in bed comfortably Constitutional well developed, well nourished and average body habitus; not ill appearing Eyes PERRL, conjunctivae normal, anicteric sclerae ENMT external ear and nose normal, oropharynx normal Neck trachea midline, no thyromegaly Respiratory no respiratory distress Auscultation: lungs clear to auscultation bilaterally Cardiovascular Rate/Rhythm: regular rate and regular rhythm; not tachycardic Heart Sounds: normal S1 and normal S2; no murmur Extremities: no edema Gastrointestinal (Abdomen) Inspection/Auscultation: normal bowel sounds; abdomen not distended Percussion/Palpation: abdomen soft; abdomen nontender Neurologic normal touch/pain/proprioception and moves all extremities; no focal motor deficits Psychiatric A+Ox3, euthymic affect Lymphatic no cervical or axillary lymphadenopathy Discharge Data Allergies Allergy/AdvReac Type Severity Reaction Status Date / Time No Known Allergies Allergy Unverified 07/30/23 12:54 Consultations 07/30/23 12:51 ED Decision to Admit Stat 07/30/23 13:40 Consult Cardiology Routine Ordered Studies 07/30/23 11:21 US gallbladder Stat 07/30/23 18:57 CT for pulmonary embolism PE [CT angio chest PE protocol] Stat Hospital Course (1) Chest pain: This is a 68 y/o female with history of CAD, HTN, dyslipidemia, prediabetes, and depression w/ anxiety who presented to the ED today with substernal chest pain since last evening. The pain initially radiated to bilateral jaw but is now localized only to chest. The severity is less than when the pain started but it is still present - no significant response to Tums, aspirin, famotidine, nitro. Mild improvement with morphine but this seemed to cause some mild nausea. Pt has known non-obstructive CAD based on cath last year, which is being medically managed. She did have a recent long car ride but denies calf pain or swelling. Unclear etiology for pain at this time but due to her medical history and a family history of CAD/[place], pt was referred for admission for further w/u. - Observe in PCU overnight - Trend troponin - Check ECHO - Cardiology consult - will make pt NPO after midnight in case additional testing needed tomorrow - Continue optimal medical management for known CAD - Check D-dimer - if elevated, consider CTA chest to r/o PE, - Empiric PPI therapy - may need to consider GI evaluation if cardiac evaluation is negative - Trial of GI cocktail in the ED 07/31/2023 Serial cardiac enzymes and EKG did not show any evidence of ACS She was evaluated by in school suspension aide and underwent exercise stress echo Stress echo was unremarkable and was negative for any ischemia CTA did not show any pulmonary embolus And stress echo of the heart showed-negative for inducible ischemia, no symptoms suggestive of angina reported, the heart rate response is mildly attenuated due to underlying therapy with beta-tosin tosin labetalol-the target heart rate was achieved. The resting blood pressure was mildly elevated with appropriate blood pressure response to exercise. Her symptoms are seems to be related to peptic ulcer disease and was advised to have an outpatient EGD down the line She was given PPI on discharge She denies any symptoms following the procedure and remains stable to be discharged She will be discharged home this afternoon (2) CAD (coronary artery disease): Chronic Continue medical management with aspirin, statin, and beta-tosin See plan for #1 (3) Essential hypertension: Chronic, stable Continue labetalol, losartan-HCTZ (4) Dyslipidemia: Lipid panel remain unremarkable Continue statin - recent change to atorvastatin as outpatient (5) Hypomagnesemia: IV repletion started in the ED - will give an additional 1 g Mag Sulfate IV and recheck in the AM (6) Hypokalemia: Given 10 mEq in the ED - will give an additional 40 mEq orally now and recheck in the AM Hypokalemia was corrected Plan Pt seen and reviewed with collaborating physician, Dr. Walker. Plan of care discussed and as outlined above. Code status: Full code DVT Prophylaxis: Lovenox She will be discharged home this afternoon Total Time Total Time Spent Total Time Spent (In Minutes): 35 minutes Discharge Plan Discharge Items Patient Disposition: Home - Self-Care Reason For Visit: CHEST PAIN Discharge Diagnosis: Chest pain, negative exercise stress echo, peptic ulcer disease Condition on Discharge: Good Activity: Resume your previous activity Non-emergency contact: Primary Care Provider Call non-emergency contact if: you have any medication questions and your symptoms worsen Follow-up/Referrals: Tristin Guillaume MD [Primary Care Provider] - (Date & Time 08/06/2023 11:00 AM Provider Tristin Guillaume MD Department Family Practice [facility] ) Diet: Heart Healthy Addtl Attending Provider Instructions: Please take precautions to avoid falls Take your medications as advised Pending Studies at Discharge: No Stand-Alone Forms: [facility], Smoking Cessation Medications and DC Order Prescriptions: New pantoprazole 40 mg Tablet,Delayed Release (Dr/Ec) 40 mg PO QAM Qty: 30 0RF Continued atorvastatin 40 mg tablet 40 mg PO QAM labetalol 200 mg tablet 200 mg PO BID citalopram 10 mg tablet 5 mg PO DAILY losartan-hydrochlorothiazide 100-25 mg tablet 1 tab PO QPM Rx Instructions: ~2 pm potassium chloride 10 mEq tablet,ER particles/crystals 10 meq PO DAILY ascorbic acid (vitamin C) [Vitamin C] 500 mg Tablet 500 mg PO DAILY aspirin 81 mg Tablet,Chewable 81 mg PO DAILY cholecalciferol (vitamin D3) 25 mcg (1,000 unit) Capsule 25 mcg PO DAILY Discharge Orders: Discharge Order (Routine); Ordered 07/31/23 Ordered By: Dread Perera Admission Data Admit Date/Time: 07/30/23 12:59 Attending Provider: Dread Perera Admit Provider: Tyrell Walker Primary Care Provider: Tristin Guillaume Other Providers: Tyrell Walker Other Interventions: Discharge Summary Assessment (RN) Last Done: 07/31/23 13:27
--- OUTSIDE RECORDS SUMMARY | 2023-07-31 19:01 | External Medical Summary | Summary of Care ---
Author Name Unknown Organization [facility] Address [address] [place] [address] Phone [phone] Care Team Providers Care Vacuum Worker Name Role Phone Tristin Guillaume MD Primary Care Provider [phone] [phone] Encounter Details Date Type Department Care Team (Late st Contact Info) Description 07/13/2023 Orders Only Family [facility] [address] [place] [address] Tristin Guillaume MD [address] [place] [address] Allergies Active Allergy Reactions Criticality Noted Date Comments Escitalopram 05/17/2022 Other Reaction(s): Unknown documented as of this encounter (statuses as of 07/13/2023) Medications Medication Sig Dispensed Refills Start Date End Date Status Aspirin 81 MG Oral Tablet Chewable Take 1 Tablet by mouth every other day. Active Citalopram Hydrobromide 10 MG Oral Tablet (CeleXA)Indications:p t taking 1/2 tablet daily Take 0.5 Tablets by mouth in the morning. Active Losartan Potassium-HCTZ 100-25 MG Oral Tablet (Hyzaar) Take 1 Tablet by mouth every afternoon. Active Potassium Chloride Liz ER 10 MEQ Oral Tablet Extended Release TAKE 1 TABLET BY MOUTH ONCE DAILY DIRECTED 90 Tablet 3 06/05/2023 Active Vitamin C 500 MG Oral Tablet Chewable Take 2 Tablets by mouth in the morning. Active Vitamin D3 25 MCG (1000 UT) Oral Capsule Take 1 Capsule by mouth in the morning. Active Atorvastatin Calcium 40 MG Oral Tablet (Lipitor)Indications: Dyslipidemia Take 1 Tablet by mouth in the morning. 90 Tablet 3 07/03/2023 Active Labetalol HCl 200 MG Oral Tablet (Normodyne) Take 1 Tablet by mouth in the morning and 1 Tablet before bedtime. 180 Tablet 3 07/03/2023 Active documented as of this encounter (statuses as of 07/13/2023) Active Problems Problem Noted Date Diagnosed Date Prediabetes 05/01/2023 HTN, goal below 130/80 04/27/2023 Depression with anxiety 04/27/2023 Dyslipidemia 04/27/2023 Overweight (BMI 25.0-29.9) 04/27/2023 documented as of this encounter (statuses as of 07/13/2023) Social History Tobacco Use Types Packs/Day Years Used Date Smoking Tobacco: Former Cigarettes Smokeless Tobacco: Never Sex and Gender Information Value Date Recorded Sex Assigned at Not on file Gender Identity Not on file Sexual Orientation Not on file Job Start Date Occupation Industry Not on file Not on file Not on file documented as of this encounter Plan of Treatment Upcoming Encounters Date Type Department Care Team (Latest Contact Info) Description 09/18/2023 8:20 AM EDT Office Visit Family Practice [facility] [address] [place] [address] Tristin Guillaume MD [address] [place] [address] 10/01/2023 2:00 PM EDT Cardiac Studies Cardiac Studies, [facility] [address] [address] 10/02/2023 9:29 AM EDT Hospital Encounter [facility], Operating Room [facility] [address] [place] [id number] Dandre Sr MD [facility] Amy Hernandez [address] [place], [place] [address] [address] 10/02/2023 9:29 AM EDT - 10/02/2023 10:05 AM EDT Surgery OR [facility], Operating Room [facility] [address] [place] [address] Dandre Sr MD [address] [place] [address], [place] [address] LEFT EXTRACAPSULAR CATARACT REMOVAL WITH INTRAOCULAR LENS 10/09/2023 1:00 PM EDT Imaging Radiology [address] [place] [address] 10/16/2023 9:10 AM EDT Hospital Encounter OR [facility], Operating Room [facility] [address] [place] [address] Dandre Sr MD [address] [place] [address], [place] [address] 10/16/2023 9:10 AM EDT - 10/16/2023 9:46 AM EDT Surgery OR [facility], Operating Room [facility] [address] [place] [address] Dandre Sr MD [address] [place] [address], [place] [address] RIGHT EXTRACAPSULAR CATARACT REMOVAL WITH INTRAOCULAR LENS 11/09/2023 8:20 AM EDT Office Visit Family Practice [facility] [address] [place] [address] Tristin Guillaume MD [address] [place] [address] 01/11/2024 9:30 AM EST Office Visit Cardiology, [facility] [address] [place] [address] Baldomero Chavez DO [address] [place] [address] Scheduled Procedures Name Priority Associated Diagnoses Date/Ti me EXTRACAPSULAR CATARACT REMOVAL WITH INTRAOCULAR LENS Combined forms of age-related cataract of left eye 10/02/2023 9:29 AM EDT EXTRACAPSULAR CATARACT REMOVAL WITH INTRAOCULAR LENS Combined forms of age-related cataract of right eye 10/16/2023 9:10 AM EDT Health Maintenance Due Date Last Done Comments Albumin/Creatinine Ratio 02/27/1972 Hepatitis C Screening 02/27/1972 DTaP,Tdap,and Td Vaccines (1 - Tdap) 1973 Cologuard 1999 Fecal Occult Blood Test 1999 Sigmoidoscopy 1999 DXA Scan 2019 Pneumococcal Vaccine: 65+ Years (1 of 1 - PCV) 2019 COVID-19 Vaccine ( - 2022- season) 2022 Mammogram 10/06/2023 10/05/2022, 09/07, 08/27/2021, Additional history exists Influenza Vaccine (FLU shot) (Season Ended) 2023 GFR 04/30/2024 05/01/2023, 04/0 04/2022, 02/06/2022, Additional history exists HbA1c 04/30/2024 05/01/2023, 04/0 10/2020, 12/05/2017, Additional history exists Lipid Panel 04/30/2028 05/01/2023, 04/0 10/2020, 12/05/2017, Additional history exists Colonoscopy 07/12/2033 12/13/2020 Colorectal Cancer Screening 07/12/2033 Zoster Vaccines Completed 08/15/2020, 05/31/2020 GARDASIL-HPV IMMUNIZATION SERIES Aged Out No longer eligible based on patient's age to complete this topic Hepatitis B Aged Out No longer eligi ble based on patient's age to complete this topic MENINGOCOCCAL (MENACTRA/MENVEO) Aged Out No longer eligible based on patient's age to complete this topic documented as of this encounter Medical Devices Not on filedocumented as of this encounter Procedures Procedure Name Priority Date/Time Associated Diagnosis Comments COLONOSCOPY Routine 12/13/2020 documented in this encounter Results * COLONOSCOPY (12/13/2020) 12/13/2020 Temo Kaur MD [facility] Organization Address City/State/ZIP Co de Phone Number OUTSIDE LAB (SEE SCANNED REPORT) documented in this encounter Care Teams Vacuum Worker Relationship Specialty Start Date End Date Tristin Guillaume MD [address] [place] [address] PCP - General Family Medicine 04/27/23 documented as of this encounter
--- OUTSIDE RECORDS SUMMARY | 2023-07-31 19:02 | External Medical Summary ---
Author Name Unknown Address Unknown Organization [facility] [address] [facility] [place] [address] Laboratory Report Ordering Provider Test Date Status RADHABHAVNA 05/01/2023 09:02:11 Final Observation Date Value Abnormality Reference (Units ) Status Triglyceride 05/01/2023 09:02:11 168 <=174 ( mg/dL) Final Triglyceride Reference Range s (mg/dL):
<150 Acceptable
150-174 Borderline high
175-499 High
>=500 Very high Cholesterol 05/01/2023 09:02:11 176 <200 (mg /dL) Final Total Cholesterol Reference Ranges (mg/dL):
<200 Desirable
200-239 Borderline high
>=240 High HDL 05/01/2023 09:02:11 42 Below low normal >49 (mg/dL) Final HDL Cholesterol Reference Ra nges (mg/dL):
>=60 High (Desirable)
<50 Low (Undesirable) For Females
<40 Low (Undesirable) For Males NON-HDL CHOLESTEROL 05/01/2023 09:02:11 134 <=159 (mg/dL) Final Non-HDL Cholesterol Referenc e Range (mg/dL):
<100 Target level for high risk ASCVD patient
<130 Optimal for general population
130-159 Near optimal for general population
160-189 Borderline High
190-219 High
>=220 Very High LDL, (calculated) 05/01/2023 09:02:11 100 <= 129 (mg/dL) Final LDL Cholesterol Reference Ra nges (mg/dL):
<70 Target level for high risk ASCVD patient
<100 Optimal for general population
100-129 Near optimal for general population
130-159 Borderline high
160-189 High
>=190 Very high Performing Location [facility]ATORY [facility] - [address] [facility] [address]
--- OUTSIDE RECORDS SUMMARY | 2023-07-31 19:02 | External Medical Summary | Summary of Care ---
Author Name Unknown Organization [facility] Address [address] [place] [address] Phone [phone] Care Team Providers Care Academic Tutor Name Role Phone Tristin Guillaume MD Primary Care Provider [phone] Encounter Details Date Type Department Care Team (Late st Contact Info) Description 04/30/2023 Orders Only PATIENT PORTAL DO NOT DELETE THIS DEPT USED BY [place] [address] Allergies Active Allergy Reactions Criticality Noted Date Comments Escitalopram 05/17/2022 Other Reaction(s): Unknown documented as of this encounter (statuses as of 04/30/2023) Medications Medication Sig Dispensed Refills Start Date End Date Status Aspirin 81 MG Oral Tablet Chewable Take 1 Tablet by mouth in the morning. 0 Active Citalopram Hydrobromide 10 MG Oral Tablet (CeleXA)Indications:pt taking 1/2 tablet daily Take 1 Tablet by mouth in the morning. 0 Active Labetalol HCl 100 MG Oral Tablet (Normodyne) Take 1 Tablet by mouth in the morning and 1 Tablet before bedtime. 0 Active Losartan Potassium-HCTZ 100-25 MG Oral Tablet (Hyzaar) Take 1 Tablet by mouth. In the morning. 0 Active Potassium Chloride Liz ER 10 MEQ Oral Tablet Extended Release TAKE 1 TABLET BY MOUTH ONCE DAILY DIRECTED 0 04/12/2023 Active Simvastatin 40 MG Oral Tablet (Zocor) Take 1 Tablet by mouth. 0 Active documented as of this encounter (statuses as of 04/30/2023) Active Problems Problem Noted Date Diagnosed Date HTN, goal below 130/80 04/27/2023 Depression with anxiety 04/27/2023 Dyslipidemia 04/27/2023 Overweight (BMI 25.0-29.9) 04/27/2023 documented as of this encounter (statuses as of 04/30/2023) Social History Tobacco Use Types Packs/Day Years Used Date Smoking Tobacco: Never Assessed Sex and Gender Information Value Date Recorded Sex Assigned at Not on file Gender Identity Not on file Sexual Orientation Not on file Job Start Date Occupation Industry Not on file Not on file Not on file documented as of this encounter Plan of Treatment Upcoming Encounters Date Type Department Care Team (Late st Contact Info) Description 08/13/2023 10:00 AM EDT Office Visit Cardiology, [facility] [address] [place] [address] Baldomero Chavez DO [address] [place] [address] 11/09/2023 8:20 AM EDT Office Visit Family Practice [facility] [address] [place] [address] Tristin Guillaume MD [address] [place] [address] Health Maintenance Due Date Last Done Comments Depression Screening 1966 Albumin/Creatinine Ratio 02/27/1972 Hepatitis C Screening 02/27/1972 DTaP,Tdap,and Td Vaccines (1 - Tdap) 1973 Cologuard 1999 Colonoscopy 1999 Colorectal Cancer Screening 1999 Fecal Occult Blood Test 1999 Sigmoidoscopy 1999 DXA Scan 2019 Pneumococcal Vaccine: 65+ Years (1 of 1 - PCV) 2019 COVID-19 Vaccine (1 - 2022-24 season) 2022 Influenza Vaccine (FLU shot) (#1) 2022 GFR 05/09/2023 05/08/2022, 03/2022, 05/14/2020, Additional history exists Mammogram 10/06/2023 10/05/2022, 09/07, 08/27/2021, Additional history exists Diabetes Screening 05/08/2025 05/08/2022, 0 05/14/2020, 12/05/2017, Additional history exists Lipid Panel 05/14/2025 05/14/2020, 11/07, 02/14/2017 Zoster Vaccines Completed 08/15/2020, 05/31/2020 GARDASIL-HPV IMMUNIZATION [...] Not on filedocumented as of this encounter Care Teams Academic Tutor Relationship Specialty Start Date End Date Tristin Guillaume MD [address] [place] [address] PCP - General Family Medicine 04/27/23 documented as of this encounter
--- OUTSIDE RECORDS SUMMARY | 2023-07-31 19:02 | External Medical Summary | Summary of Care ---
Author Name Unknown Organization [facility] Address [address] [place] [address] Phone [phone] Care Team Providers Care Title One Teacher Name Role Phone Tristin Guillaume MD Primary Care Provider [phone] Reason for Referral * Evaluate & Treat - Unlimited Visits (Within 10 days (routine)) - Pending Review Specialty Diagnoses / Procedures Referred By Contact Referred To Contact Cardiovascular Medicine / Cardiology Diagnoses Coronary artery disease due to lipid rich plaque Tristin Guillaume MD [address] [place] [address] Baldomero Chavez DO [address] [place] [address] Referral ID Status Reason Start Date Expiration Date Visits Requested Visits Authorized [id number] Pending Review Specialty Services Required 04/27/[phone] Question Answer Referral Priority Within 10 days (routine) Where should this appointment be scheduled? [facility] To which of the following clinics are you referring your patient? General Cardiology Clinic Reason for Visit * Reason Comments NEW PATIENT Pt here to establish care with new PCP Encounter Details Date Type Department Care Team (Late st Contact Info) Description 04/27/2023 2:00 PM EDT Office Visit Family [facility] [address] [place] [address] Tristin Guillaume MD [address] [place] [address] HTN, goal below 130/80*; Overweight (BMI 25.0-29.9); Depression with anxiety; Dyslipidemia; Coronary artery disease due to lipid rich plaque; Screening for diabetes mellitus Allergies Active Allergy Reactions Criticality Noted Date Comments Escitalopram 05/17/2022 Other Reaction(s): Unknown documented as of this encounter (statuses as of 04/29/2023) Medications Medication Sig Dispensed Refills Start Date End Date Status Aspirin 81 MG Oral Tablet Chewable Take 1 Tablet by mouth in the morning. 0 Active Citalopram Hydrobromide 10 MG Oral Tablet (CeleXA)Indications :pt taking 1/2 tablet daily Take 1 Tablet [...] Take 1 Tablet by mouth. 0 Active cloNIDine HCl ER 0.1 MG Oral Tablet Extended Release 12 Hour Take by mouth. 0 04/27/2023 Discontinu ed hydrALAZINE HCl 25 MG Oral Tablet (Apresoline) Take 1 Tablet by mouth in the morning and 1 Tablet at noon and 1 Tablet before bedtime. 0 04/27/2023 Discontinued documented as of this encounter (statuses as of 04/29/2023) Active Problems Problem Noted Date Diagnosed Date HTN, goal below 130/80 04/27/2023 Depression with anxiety 04/27/2023 Dyslipidemia 04/27/2023 Overweight (BMI 25.0-29.9) 04/27/2023 documented as of this encounter (statuses as of 04/29/2023) Social History Tobacco Use Types Packs/Day Years Used Date Smoking Tobacco: Never Assessed Sex and Gender Information Value Date Recorded Sex Assigned at Not on file Gender Identity Not on file Sexual Orientation Not on file Job Start Date Occupation Industry Not on file Not on file Not on file documented as of this encounter Last Filed Vital Signs Vital Sign Reading Time Taken Comments Blood Pressure 142/82 04/27/2023 2:05 PM EDT Pulse 68 04/27/2023 2:05 PM EDT Temperature 37.1 C (98.7 F) 04/27/2023 2:05 PM ED T Respiratory Rate 18 04/27/2023 2:05 PM EDT Oxygen Saturation 100% 04/27/2023 2:05 PM EDT Inhaled Oxygen Concentration - - Weight 70.3 kg (155 lb) 04/27/2023 2:05 PM EDT Height 160 cm (5' 3") 04/27/2023 2:05 PM EDT Body Mass Index 27.46 04/27/2023 2:05 PM EDT documented in this encounter Progress Notes * Tristin Guillaume MD - 04/29/2023 2:29 PM EDT SUBJECTIVE: Autumn Vale is a 68 year old female. Chief Complaint Patient presents with NEW PATIENT Pt here to establish care with new PCP HPI: This is a very pleasant 68 year old female here today accompanied by her to establish care with me. She is transferring from a private office located in [place]. All of her medications were reviewed. She does not currently need any refills. Overall she feels well. Patient Active Problem List Diagnosis Code HTN, goal below 130/80 I10 Depression with anxiety F41.8 Dyslipidemia E78.5 Overweight (BMI 25.0-29.9) E66.3 Current Outpatient Medications Medication Sig Dispense Refill Aspirin 81 MG Oral Tablet Chewable Take 1 Tablet by mouth in the morning. Citalopram Hydrobromide 10 MG Oral Tablet (CeleXA) Take 1 Tablet by mouth in the morning. Labetalol HCl 100 MG Oral Tablet (Normodyne) Take 1 Tablet by mouth in the morning and 1 Tablet before bedtime. Losartan Potassium-HCTZ 100-25 MG Oral Tablet (Hyzaar) Take 1 Tablet by mouth. In the morning. Potassium Chloride Liz ER 10 MEQ Oral Tablet Extended Release TAKE 1 TABLET BY MOUTH ONCE DAILY ASDIRECTED Simvastatin 40 MG Oral Tablet (Zocor) Take 1 Tablet by mouth. No current facility-administered medications for this visit. Allergy: Review of patient's allergies indicates: Allergen Reactions Escitalopram Other Reaction(s): Unknown OBJECTIVE: BP 142/82 | Pulse 68 | Temp 37.1 C (98.7 F) (Tympanic) | Resp 18 | Ht 1.6 m (5' 3") | Wt 70.3 kg (155 lb) | SpO2 100% | BMI 27.46 kg/m | BSA 1.77 m General: alert, healthy, and no distress Head: Normocephalic, No masses, lesions, tenderness or abnormalities Neck: supple, no adenopathy, no bruits, thyroid normal size, non-tender, without nodularity Lungs: chest symmetric with normal AP diameter, no chest deformities noted, no chest wall tenderness, lungs clear to auscultation Heart: regular rate & rhythm, no murmur, and no gallops Extremities: less than 2 second capillary refill, no joint deformities, effusion, or inflammation Neuro Exam: alert & oriented x 3 with fluent speech, no focal motor/sensory deficits, gait normal, reflexes normal and symmetric Skin: skin color, texture, turgor are normal, no rashes or significant lesions ASSESSMENT AND PLAN: (I10) HTN, goal below 130/80 (primary encounter diagnosis) Plan: COMPREHENSIVE METABOLIC PANEL -continue rx (E66.3) Overweight (BMI 25.0-29.9) Plan: diet/exercise (F41.8) Depression with anxiety Plan: stable on SSRI (E78.5) Dyslipidemia Plan: LIPID PANEL WITH DIRECT LDL IF TG IS HIGH (I25.10, I25.83) Coronary artery disease due to lipid rich plaque Plan: CARDIOLOGY REFERRAL OP (Z13.1) Screening for diabetes mellitus Plan: HEMOGLOBIN A1C Follow up in 6 month(s). No other complaints were offered at this time. Tristin Guillaume MD documented in this encounter Nursing Notes * Francheska Smith LPN - 04/27/2023 2:05 PM EDT The patient has been properly identified by confirmation of name and date of . Chief Complaint Patient presents with NEW PATIENT Pt here to establish care with new PCP documented in this encounter Plan of Treatment Upcoming Encounters Date Type Department Care Team (Late st Contact Info) Description 08/13/2023 10:00 AM EDT Office Visit Cardiology, [facility] [address] [place] [address] Baldomero Chavez DO [address] [place] [address] 11/09/2023 8:20 AM EDT Office Visit Family Practice [facility] [address] [place] [address] Tristin Guillaume MD [address] [place] [address] Scheduled Orders Name Type Priority Associated Diagnoses Orde r Schedule LIPID PANEL WITH DIRECT LDL IF TG IS HIGH Lab Routine Dyslipidemia Expected: 04/27/2023, Expires: 04/26/2024 HEMOGLOBIN A1C Lab Routine Screening for diabetes mellitus Expected: 04/27/2023 (Approximate), Expires: 04/26/2024 COMPREHENSIVE METABOLIC PANEL Lab Routine HTN, goal below 130/80 Expected: 04/27/2023 (Approximate), Expires: 04/26/2024 Scheduled Referrals Name Type Priority Associated Diagnoses Orde r Schedule CARDIOLOGY REFERRAL OP Referral Within 10 days (routine) Coronary artery disease due to lipid rich plaque Ordered: 04/27/2023 Health Maintenance Due Date Last Done Comments [...] Not on filedocumented as of this encounter Visit Diagnoses Diagnosis HTN, goal below 130/80- Primary Unspecified essential hypertension Overweight (BMI 25.0-29.9) Overweight Depression with anxiety Dysthymic disorder Dyslipidemia Other and unspecified hyperlipidemia Coronary artery disease due to lipid rich plaque Screening for diabetes mellitus documented in this encounter Care Teams Title One Teacher Relationship Specialty Start Date End Date Tristin Guillaume MD [address] [place] [address] PCP - General Family Medicine 04/27/23 documented as of this encounter
--- OUTSIDE RECORDS SUMMARY | 2023-07-31 19:02 | External Medical Summary ---
Author Name Unknown Address Unknown Organization K0G:[facility] - [address] [place] [address] Laboratory Report Ordering Provider Test Date Status BHAVNA GARCIA 05/01/2023 09:02:11 Final Observation Date Value Abnormality Reference (Units ) Status BUN 05/01/2023 09:02:11 18 6-20 (mg/dL) Final Creatinine 05/01/2023 09:02:11 0.9 0.5-1.0 (mg/dL) Final Glomerular filtration rate/1.73 sq M.predicted [Volume Rate/Area] in Serum, Plasma or Blood by Creatinine-based formula (CKD-EPI) 05/01/2023 09:02:11 68 >=60 (mL/min) Final eGFR is calculated based on the CKD-EPI 2020 equation Sodium 05/01/2023 09:02:11 140 135-146 (m mol/L) Final Potassium 05/01/2023 09:02:11 4.7 3.5-5.1 (m mol/L) Final Cl 05/01/2023 09:02:11 101 98-107 (mm ol/L) Final CO2 05/01/2023 09:02:11 30 22-32 (mmo l/L) Final Anion gap 05/01/2023 09:02:11 9 7-15 (mmol /L) Final Glucose 05/01/2023 09:02:11 113 70-120 (mg /dL) Final Albumin 05/01/2023 09:02:11 4.7 3.8-5.0 (g /dL) Final AST (Aspartate aminotransferase) 05/01/2023 09:02:11 22 10-35 (U/L) Final Alk Phos 05/01/2023 09:02:11 54 35-130 (U/ L) Final Bilirubin, Total 05/01/2023 09:02:11 0.8 <=1 .2 (mg/dL) Final Calcium 05/01/2023 09:02:11 10.0 8.4-10.2 ( mg/dL) Final Protein 05/01/2023 09:02:11 6.9 6.0-8.3 (g /dL) Final ALT (Alanine aminotransferase) 05/01/2023 09:02:11 22 10-35 (U/L) Final Performing Location [facility]ATORY [facility] [address] - [address] [facility] [address]
--- OUTSIDE RECORDS SUMMARY | 2023-07-31 19:02 | External Medical Summary | Summary of Care ---
Author Name Unknown Organization [facility] Address [address] [place] [address] Phone [phone] Care Team Providers Care Customer Service Rep Name Role Phone Tristin Guillaume MD Primary Care Provider [phone] Reason for Visit * Reason Onset Date Comments Health Maintenance 06/27/2023 Encounter Details Date Type Department Care Team (Late st Contact Info) Description 06/27/2023 Telephone Family Practice [facility] [address] [place] [address] Tristin Guillaume MD [address] [place] [address] Health Maintenance Allergies Active Allergy Reactions Criticality Noted Date Comments Escitalopram 05/17/2022 Other Reaction(s): Unknown documented as of this encounter (statuses as of 06/27/2023) Medications Medication Sig Dispensed Refills Start Date End Date Status Aspirin 81 MG Oral Tablet Chewable Take 1 Tablet by mouth in the morning. Active Citalopram Hydrobromide 10 MG Oral Tablet (CeleXA)Indications:p t taking 1/2 tablet daily Take 1 Tablet by mouth in the morning. Active Labetalol HCl 100 MG Oral Tablet (Normodyne) Take 1 Tablet by mouth in the morning and 1 Tablet before bedtime. Active Losartan Potassium-HCTZ 100-25 MG Oral Tablet (Hyzaar) Take 1 Tablet by mouth. In the morning. Active Simvastatin 40 MG Oral Tablet (Zocor) Take 1 Tablet by mouth every evening. 90 Tablet 3 05/08/2023 Active Potassium Chloride Liz ER 10 MEQ Oral Tablet Extended Release TAKE 1 TABLET BY MOUTH ONCE DAILY DIRECTED 90 Tablet 3 06/05/2023 Active documented as of this encounter (statuses as of 06/27/2023) Active Problems Problem Noted Date Diagnosed Date Prediabetes 05/01/2023 HTN, goal below 130/80 04/27/2023 Depression with anxiety 04/27/2023 Dyslipidemia 04/27/2023 Overweight (BMI 25.0-29.9) 04/27/2023 documented as of this encounter (statuses as of 06/27/2023) Social History Tobacco Use Types Packs/Day Years Used Date Smoking Tobacco: Never Assessed Sex and Gender Information Value Date Recorded Sex Assigned at Not on file Gender Identity Not on file Sexual Orientation Not on file Job Start Date Occupation Industry Not on file Not on file Not on file documented as of this encounter Miscellaneous Notes * Telephone Encounter - Alexandra Morel LPN - 06/27/2023 2:35 PM EDT Care Gaps Comprehensive Care Outreach Last Office/Telemedicine Visit: 04/27/2023 (in office), Visit date not found (telemedicine) Next Office Visit: 09/18/2023 Hemoglobin AIC Results: Lab Results Component Value Date/Time HEMOGLOBIN A1C - [facility] 6.0 (H) 05/01/2023 09:02 AM BP Readings from Last 1 Encounters: 04/27/23 142/82 Reviewed Health Maintenance below: Health Maintenance Topic Date Due Albumin/Creatinine Ratio Never done Hepatitis C Screening Never done DTaP,Tdap,and Td Vaccines (1 - Tdap) Never done Colorectal Cancer Screening Never done DXA Scan Never done Pneumococcal Vaccine: 65+ Years (1 of 1 - PCV) Never done COVID-19 Vaccine (1 - season) Never done Mammogram 10/06/2023 Mamm aug [facility] alda scheduled Dexa 10 years ago declined Colon Eriberto gastro requested Urine Just estab Care Gap Outreach Action Taken: Spoke to patient documented in this encounter Plan of Treatment Upcoming Encounters Date Type Department Care Team (Latest Contact Info) Description 07/03/2023 1:00 PM EDT Office Visit Cardiology, [facility] [address] [place] [address] [address], [address] [place] [address] 09/18/2023 8:20 AM EDT Office Visit Family Practice [facility] [address] [place] [address] Tristin Guillaume MD [address] [place] [address] 10/02/2023 9:29 AM EDT Hospital Encounter [facility] [address] [place] [address] Dandre Sr MD [address] [address] 10/02/2023 9:29 AM EDT - 10/02/2023 10:05 AM EDT Surgery [facility] [address] [place] [address] Dandre Sr MD [address] [place] [address] LEFT EXTRACAPSULAR CATARACT REMOVAL WITH INTRAOCULAR LENS 10/09/2023 1:00 PM EDT Imaging Radiology [address] [place] [address] 10/16/2023 9:35 AM EDT Hospital Encounter [facility] [address] [place] [phone] Dandre Sr MD [address] [place] [address] 10/16/2023 9:35 AM EDT - 10/16/2023 10:11 AM EDT Surgery [facility] [address] [place] [id number] Dandre Sr MD [facility] Amy Hernandez [address] [place] [address], [place] [address] RIGHT EXTRACAPSULAR CATARACT REMOVAL WITH INTRAOCULAR LENS 11/09/2023 8:20 AM EDT Office Visit Family [facility] [address] [place] [address] Tristin Guillaume MD [address] [place] [address] Scheduled Orders Name Type Priority Associated Diagnoses Orde r Schedule MAMMOGRAM SCREENING AGATHA BILATERAL Medical Imaging Routine Encounter for screening mammogram for malignant neoplasm of breast Expected: 06/27/2023, Expires: 07/27/2024 Scheduled Procedures Name Priority Associated Diagnoses Date/Ti me EXTRACAPSULAR CATARACT REMOVAL WITH INTRAOCULAR LENS Combined forms of age-related cataract of left eye 10/02/2023 9:29 AM EDT EXTRACAPSULAR CATARACT REMOVAL WITH INTRAOCULAR LENS Combined forms of age-related cataract of right eye 10/16/2023 9:35 AM EDT Health Maintenance Due Date Last Done Comments Albumin/Creatinine Ratio 02/27/1972 Hepatitis C Screening 02/27/1972 DTaP,Tdap,and Td Vaccines (1 - Tdap) 1973 Cologuard 1999 Colonoscopy 1999 Colorectal Cancer Screening 1999 Fecal Occult Blood Test 1999 Sigmoidoscopy 1999 DXA Scan 2019 Pneumococcal Vaccine: 65+ Years (1 of 1 - PCV) 2019 COVID-19 Vaccine ( - 2022-24 season) 2022 Mammogram 10/06/2023 10/05/2022, 09/07, 08/27/2021, Additional history exists Influenza Vaccine (FLU shot) (Season Ended) 2023 GFR 04/30/2024 05/01/2023, 04/0 04/2022, 02/06/2022, Additional history exists HbA1c 04/30/2024 05/01/2023, 04/0 10/2020, 12/05/2017, Additional history exists Lipid Panel 04/30/2028 05/01/2023, 04/0 10/2020, 12/05/2017, Additional history exists Zoster Vaccines Completed 08/15/2020, 05/31/2020 GARDASIL-HPV IMMUNIZATION [...] as of this encounter Visit Diagnoses Diagnosis Encounter for screening mammogram for malignant neoplasm of breast- Primary Other screening mammogram Combined forms of age-related cataract of left eye Other and combined forms of senile cataract Combined forms of age-related cataract of right eye Other and combined forms of senile cataract documented in this encounter Care Teams Customer Service Rep Relationship Specialty Start Date End Date Tristin Guillaume MD [address] [place] [address] PCP - General Family Medicine 04/27/23 documented as of this encounter
--- OUTSIDE RECORDS SUMMARY | 2023-07-31 19:02 | External Medical Summary | Summary of Care ---
Author Name Unknown Organization [facility] Address [address] [facility] [place] [address] Phone [phone] Care Team Providers Care Estate Manager Name Role Phone Tristin Guillaume MD Primary Care Provider [phone] Reason for Visit * Reason Comments Outpatient Testing Encounter Details Date Type Department Care Team (Late st Contact Info) Description 05/01/2023 8:20 AM EDT Laboratory Laboratory, [facility] [address] [facility] [phone] [facility] [address] [place] [address] Dyslipidemia; Screening for diabetes mellitus; HTN, goal below 130/80 Allergies Active Allergy Reactions Criticality Noted Date Comments Escitalopram 05/17/2022 Other Reaction(s): Unknown documented as of this encounter (statuses as of 05/01/2023) Medications Medication Sig Dispensed Refills Start Date [...] as of this encounter (statuses as of 05/01/2023) Active Problems Problem Noted Date Diagnosed Date HTN, goal below 130/80 04/27/2023 Depression with anxiety 04/27/2023 Dyslipidemia 04/27/2023 Overweight (BMI 25.0-29.9) 04/27/2023 documented as of this encounter (statuses as of 05/01/2023) Social History Tobacco Use Types Packs/Day Years [...] 08/13/2023 10:00 AM EDT Office Visit Cardiology, [facility] [address] [address] [address], [address] [place] [address] 11/09/2023 8:20 AM EDT Office Visit Family Practice [facility] [address] [place] [address] Tristin Guillaume MD [address] [place] [address] Pending Results Name Type Priority Associated Diagnoses Date /Time LIPID PANEL WITH DIRECT LDL IF TG IS HIGH Lab Routine Dyslipidemia 05/01/2023 9:02 AM EDT HEMOGLOBIN A1C Lab Routine Screening for diabetes mellitus 05/01/2023 9:02 AM EDT COMPREHENSIVE METABOLIC PANEL Lab Routine HTN, goal below 130/80 05/01/2023 9:02 AM EDT Health Maintenance Due Date Last Done Comments Depression Screening 1966 Albumin/Creatinine Ratio 02/27/1972 Hepatitis C Screening 02/27/1972 DTaP,Tdap,and Td Vaccines (1 - Tdap) 1973 Cologuard 1999 Colonoscopy 1999 Colorectal Cancer Screening 1999 Fecal Occult Blood Test 1999 Sigmoidoscopy 1999 DXA Scan 2019 Pneumococcal Vaccine: 65+ Years (1 of 1 - PCV) 2019 COVID-19 Vaccine (1 - 2022- season) 2022 Influenza Vaccine (FLU shot) (#1) [...] as of this encounter Visit Diagnoses Diagnosis Dyslipidemia Other and unspecified hyperlipidemia Screening for diabetes mellitus HTN, goal below 130/80 Unspecified essential hypertension documented in this encounter Care Teams Estate Manager Relationship Specialty Start Date End Date Tristin Guillaume MD [address] [place] [address] PCP - General Family Medicine 04/27/23 documented as of this encounter
--- OUTSIDE RECORDS SUMMARY | 2023-07-31 19:02 | External Medical Summary | Summary of Care ---
Author Name Unknown Organization [facility] Address [address] [place] [address] Phone [phone] Care Team Providers Care Black Top Spreader Machine Operator Name Role Phone Radha Guillaume MD Primary Care Provider [phone] Reason for Referral * Precert (Within 10 days (routine)) - Pending Review Specialty Diagnoses / Procedures Referred By Contac t Referred To Contact Cardiac Studies Diagnoses CAD (coronary artery disease) HTN, goal below 130/80 Procedures ECHO, COMPLETE (2D), TRANS-THORACIC Baldomero Chavez DO [address] [place] [address] Referral ID Status Reason Start Date Expiration Date Visits Requested Visits Authorized [id number] Pending Review Precert 07/03/2023 999 [id number] Reason for Visit * Reason Comments NEW PATIENT * Evaluate & Treat - Unlimited Visits (Within 10 days (routine)) - Pending Review Specialty Diagnoses / Procedures Referred By Contact Referred To Contact Cardiovascular Medicine / Cardiology Diagnoses Coronary artery disease due to lipid rich plaque Radha Guillaume MD [address] [place] [address] Baldomero Chavez DO [address] [place] [address] Referral ID Status Reason Start Date Expiration Date Visits Requested Visits Authorized [id number] Pending Review Specialty Services Required 04/27/2023 [id number] Encounter Details Date Type Department Care Team (Late st Contact Info) Description 07/03/2023 1:00 PM EDT Office Visit Cardiology, [facility] [address] [place] [address] Baldomero Chavez, [address] [place] [address] Coronary artery disease involving citizen [place] coronary artery of citizen [place] heart without angina pectoris*; HTN, goal below 130/80; Dyslipidemia Allergies Active Allergy Reactions Criticality Noted Date Comments Escitalopram 05/17/2022 Other Reaction(s): Unknown documented as of this encounter (statuses as of 07/03/2023) Medications Medication Sig Dispensed Refills Start Date End Date Status Aspirin 81 MG Oral Tablet Chewable Take 1 Tablet by mouth every other day. Active Citalopram Hydrobromide 10 MG Oral Tablet (CeleXA)Indicatio ns:pt taking 1/2 tablet daily Take 0.5 Tablets [...] Active Atorvastatin Calcium 40 MG Oral Tablet (Lipitor)Indicati ons:Dyslipidemia Take 1 Tablet by mouth in the morning. 90 Tablet 3 07/03/2023 Active Labetalol HCl 200 MG Oral Tablet (Normodyne) Take 1 Tablet by mouth in the morning and 1 Tablet before bedtime. 180 Tablet 3 07/03/2023 Active Labetalol HCl 100 MG Oral Tablet (Normodyne) 100mg by mouth in the morning and 200mg by mouth in the evening 07/03/19 24 Discontinued Simvastatin 40 MG Oral Tablet (Zocor) Take 1 Tablet by mouth every evening. 90 Tablet 3 05/08/2023 07/03/19 24 Discontinued(Pat ient preference/disco ntinuation) documented as of this encounter (statuses as of 07/03/2023) Active Problems Problem Noted Date Diagnosed Date Prediabetes 05/01/2023 HTN, goal below 130/80 04/27/2023 Depression with anxiety 04/27/2023 Dyslipidemia 04/27/2023 Overweight (BMI 25.0-29.9) 04/27/2023 documented as of this encounter (statuses as of 07/03/2023) Social History Tobacco Use Types Packs/Day Years Used Date Smoking Tobacco: Former Cigarettes Smokeless Tobacco: Never Tobacco Cessation:Counseling Given: No Sex and Gender Information Value Date Recorded Sex Assigned at Not on file Gender Identity Not on file Sexual Orientation Not on file Job Start Date Occupation Industry Not on file Not on file Not on file documented as of this encounter Last Filed Vital Signs Vital Sign Reading Time Taken Comments Blood Pressure 162/70 07/03/2023 12:59 PM EDT Pulse 66 07/03/2023 12:59 PM EDT Temperature - - Respiratory Rate 14 07/03/2023 12:59 PM EDT Oxygen Saturation - - Inhaled Oxygen Concentration - - Weight 69 kg (152 lb 3.2 oz) 07/03/2023 12:59 PM EDT Height - - Body Mass Index 26.96 04/27/2023 2:05 PM EDT documented in this encounter Progress Notes * Baldomero Chavez, - 07/03/2023 1:21 PM EDT Cardiology Consultation [facility] 07/03/2023 PCP: [facility] [address] [facility] [address] [phone] History of Present Illness: Autumn Vale is a 68 year old year old female seen in cardiology consultation per the request of Dr. Guillaume to establish local cardiology care given her history of coronary heart disease.Autumn presents accompanied by her , Raffi. They moved to the area in September,. She states that herrecent history dates back to a year ago in 2022 when she had been having difficulty with increased blood pressure and some degree of shortness of breath with exertion. I do not have the report from her nuclear stress test but she describes having had what sounds like a nuclear stress test. Available outside cardiology notes describe that the stress test was mildly abnormal. She had therefore undergone invasive coronary angiography within the [facility] in May, for the evaluation of complaint of dyspnea on exertion with noted abnormal stress test. [place] is available via the CareGenSperaywhere feature in her Epic electronic record and describes mildluminal irregularities of the left main coronary artery. There was a 50% mid LAD lesion that was assessed via IFR and FFR with measurements that were felt to not be hemodynamically significant of 0.9and 0.84 respectively. The first diagonal branch was small in size and had a 50 to 60% ostial stenosis, the vessel was less than a millimeter in diameter. Mild luminal irregularities were noted in the circumflex obtuse marginal system and mild luminal irregularities were noted in the right coronaryartery. Ongoing medication management was recommended. She notes overall feeling well. Her blood pressure is typically higher when she first goes to the doctor's office, but she takes her blood pressure twice a day at home and most of the readings are inthe 130s over 70s. Review of Systems: All systems reviewed & are unremarkable except as noted in HPI & below Denies chest discomfort, shortness of breath, lower extremity edema. Past Medical History: Patient Active Problem List Diagnosis HTN, goal below 130/80 Depression with anxiety Dyslipidemia Overweight (BMI 25.0-29.9) Prediabetes Social History: Social History Socioeconomic History Marital status: Spouse name: Raffi Number of children: Not on file Occupational History Not on file Tobacco Use Smoking status: Former Types: Cigarettes Smokeless tobacco: Never Substance and Sexual Activity Alcohol use: Not on file Drug use: Not on file Allergies: Escitalopram Medications: Current Outpatient Medications Medication Sig Dispense Refill Aspirin 81 MG Oral Tablet Chewable Take 1 Tablet by mouth every other day. Citalopram Hydrobromide 10 MG Oral Tablet (CeleXA) Take 0.5 Tablets by mouth in the morning. Labetalol HCl 100 MG Oral Tablet (Normodyne) 100mg by mouth in the morning and 200mg by mouth in the evening Losartan Potassium-HCTZ 100-25 MG Oral Tablet (Hyzaar) Take 1 Tablet by mouth every afternoon. Simvastatin 40 MG Oral Tablet (Zocor) Take 1 Tablet by mouth every evening. 90 Tablet 3 Potassium Chloride Liz ER 10 MEQ Oral Tablet Extended Release TAKE 1 TABLET BY MOUTH ONCE DAILY ASDIRECTED 90 Tablet 3 Vitamin C 500 MG Oral Tablet Chewable Take 2 Tablets by mouth in the morning. Vitamin D3 25 MCG (1000 UT) Oral Capsule Take 1 Capsule by mouth in the morning. No current facility-administered medications for this visit. OBJECTIVE/PHYSICAL EXAMINATION: BP 162/70 (BP Site: Left Arm, BP Position: Sitting, BP Cuff Size: Large) | Pulse 66 | Resp 14 | Wt 69 kg (152 lb 3.2 oz) | BMI 26.96 kg/m | BSA 1.75 m BP Readings from Last 4 Encounters: 07/03/23 162/70 04/27/23 142/82 General: no acute distress and stated age Eyes: conjunctiva are pink and non-injected, sclera clear Neck: normal jugular venous pulse, no hepatojugular reflux Chest: normal shape and normal respiratory effort Lungs: clear to auscultation and percussion Cardiac Exam: - regular heart sounds, no murmurs, rubs, or gallops Abdomen: abdomen soft, non-tender, no abnormal masses and no hepatosplenomegaly Musculoskeletal: no gait disturbance, no weakness Extremities: no edema and no cyanosis Neuro: grossly normal exam Psych: appropriate affect and insight. Data: EKG performed today 07/03/2023 reveals normal sinus rhythm at 61 beats per minute, normal EKG Latest Reference Range & Units 05/01/23 09:02 Triglycerides <=174 mg/dL 168 Cholesterol <200 mg/dL 176 Non-HDL Cholesterol <=159 mg/dL 134 HDL Cholesterol >49 mg/dL 42 (L) LDL Cholesterol <=129 mg/dL 100 (L): Data is abnormally low IMPRESSION: 68 year old year old female CAD (coronary artery disease) (Primary) - we reviewed the outside report of her previous cardiac catheterization and discussed the results with regards to the intermediate, 50% stenosis of the left anterior descending coronary artery that was not felt to be hemodynamically significant by FFR evaluation. Recommend ongoing management including daily aspirin, high-intensity statin therapy for LDL cholesterol goal less than 70 milligrams/deciliter. Will therefore transition her from simvastatin 40 milligrams which she has taken for yearsto atorvastatin 40 milligrams daily and will repeat a lipid panel. Continue beta-tosin in the form of labetalol, losartan and HCTZ. HTN, goal below 130/80 - proceed with echocardiogram with regards to her history of high blood pressure. We discussed thather reading in the office is high today, and her readings in at home while better than what we havein the office are still above goal for her. Will increase her labetalol from 100 milligrams in the morning and 200 milligrams in the evening to 200 milligrams twice daily, continue current dose of losartan/HCTZ. Dyslipidemia - Atorvastatin Calcium 40 MG Oral Tablet (Lipitor); Take 1 Tablet by mouth in the morning. - LIPID PANEL WITH DIRECT LDL IF TG IS HIGH; Future; Expected date: 10/03/2023 Check-out note: Repeat labs in 3 months Echo in 1-3 months Follow up with Dr Maravilla or AP in 6 months. Baldomero Chavez DO Cardiology, [address] [address] This chart was completed in part utilizing [employer] Speech Voice Recognition Software. Grammatical errors, random word insertions, prounoun errors, and incomplete sentences are an occasional consequence of this system due to software limitations, ambient noise, and hardware issues. Any formal questions or concerns about the content, text, or information contained within the body of this dictation should be directly addressed to the provider for clarification. documented in this encounter Procedure Notes * Kam Song DO - 07/03/2023 1:14 PM EDTAssociated Order(s): EKG REASON FOR STUDY: new patient; CAD;new patient; CAD CONCLUSIONS: Normal sinus rhythm Normal ECG No previous ECGs available Ventricular Rate: 61 Atrial Rate: 61 [place] Interval: 162 QRS Duration: 88 QT/QTc: 444/446 ms P-R-T [place]: 64 : 40 : 76 degrees documented in this encounter Nursing Notes * Lilly Barnard RN - 07/03/2023 1:04 PM EDT Examination Room: 10 Name: Autumn Vale Date of : (1955). Reason for Visit: New patient Interim Hospitalization(s): No Problems/Concerns: Here to establish care. Cath performed last year; medical management recommended. Chest Pain/SOB: Denies [facility] Discussed: Not applicable [facility] is a way you can talk to your provider online through e-mail. Would you like to sign up? I can activate it for you? ALREADY ACTIVE Patient was instructed to not get up on the exam table until directed and assisted by their provider; patient is to remain seated in the chair/ wheelchair/ exam table for fall prevention and safety reasons. Patient is aware to have assistance to step down off exam table with personnel. Patient voiced full comprehension of instructions. documented in this encounter Plan of Treatment Upcoming Encounters Date Type Department Care Team (Latest Contact Info) Description 09/18/2023 8:20 AM EDT Office Visit Family Practice [facility] [address] [place] [address] Radha Guillaume MD [address] [place] [address] 10/01/2023 2:00 PM EDT Cardiac Studies Cardiac Studies, [facility] [address] [place] [address] 10/02/2023 9:29 AM EDT Hospital Encounter OR [facility], Operating Room [facility] [address] [place] [id number] Dandre Sr MD [address] [place] [address], [place] [address] 10/02/2023 9:29 AM EDT - 10/02/2023 10:05 AM EDT Surgery OR [facility], Operating Room [facility] [address] [place] [id number] Dandre Sr MD [address] [place] [address], [place] [address] LEFT EXTRACAPSULAR CATARACT REMOVAL WITH INTRAOCULAR LENS 10/09/2023 1:00 PM EDT Imaging Radiology [facility] [address] [place] [address] 10/16/2023 9:35 AM EDT Hospital Encounter OR [facility], Operating Room [facility] [address] [place] [phone] Dandre Sr MD [address] [address] 10/16/2023 9:35 AM EDT - 10/16/2023 10:11 AM EDT Surgery OR [facility], Operating Room [facility] [address] [place] [address] Dandre Sr MD [address] [address] RIGHT EXTRACAPSULAR CATARACT REMOVAL WITH INTRAOCULAR LENS 11/09/2023 8:20 AM EDT Office Visit Family Practice [facility] [address] [place] [address] Radha Guillaume MD [address] [place] [address] 01/11/2024 9:30 AM EST Office Visit Cardiology, [facility] [address] [place] [address] Baldomero Chavez DO [address] [place] [address] Scheduled Orders Name Type Priority Associated Diagnoses Orde r Schedule LIPID PANEL WITH DIRECT LDL IF TG IS HIGH Lab Routine Dyslipidemia Expected: 10/03/2023, Expires: 07/02/2024 ECHO, COMPLETE (2D), TRANS-THORACIC Echocardiology Routine Coronary artery disease involving citizen [place] coronary artery of citizen [place] heart without angina pectoris HTN, goal below 130/80 Expected: 07/03/2023 (Approximate), Expires: 08/02/2025 Scheduled Procedures Name Priority Associated Diagnoses Date/Ti [...] - PCV) 2019 COVID-19 Vaccine ( - season) 2022 Mammogram 10/06/2023 10/05/2022, 09/07, 08/27/2021, [...] Procedure Name Priority Date/Time Associated Diagnosis Comments NJ ECG ROUTINE ECG W/LEAST 12 LDS W/I&R Routine 07/03/2023 1:14 PM EDT Coronary artery disease involving citizen [place] coronary artery of citizen [place] heart without angina pectoris documented in this encounter Results * EKG (07/03/2023 1:14 PM EDT) 07/03/2023 1:14 PM EDT Narrative Procedure Note Kam Song DO - 07/03/2023 1:14 PM EDT REASON FOR STUDY: new patient; CAD;new patient; CAD CONCLUSIONS: Normal sinus rhythm Normal ECG No previous ECGs available Ventricular Rate: 61 Atrial Rate: 61 [place] Interval: 162 QRS Duration: 88 QT/QTc: 444/446 ms P-R-T [place]: 64 : 40 : 76 degrees Baldomero Chavez DO EKG [facility] CARDIOLOGY documented in this encounter Visit Diagnoses Diagnosis Coronary artery disease involving citizen [place] coronary artery of citizen [place] heart without angina pectoris- Primary HTN, goal below 130/80 Unspecified essential hypertension Dyslipidemia Other and unspecified hyperlipidemia Combined forms of age-related cataract of left eye Other and combined forms of senile cataract Combined forms of age-related cataract of right eye Other and combined forms of senile cataract documented in this encounter Care Teams Black Top Spreader Machine Operator Relationship Specialty Start Date End Date Radha Guillaume MD [address] [facility] [place] [address] PCP - General Family Medicine 04/27/23 documented as of this encounter"
== END 2023-07-31 13:50 | disposition home or self-care (01) ==
LOC: EDBD → ED 09:47 → MERGE 09:47 → 2S 09:47 → SUATTDRO 12:59 → 2S 16:57